=== PATIENT | female | born 1930 | race Caucasian/White ===

== ENCOUNTER 2018-02-20 18:45 | Emergency (ER) | payer MEDICARE ==
[~2018-02-20] VITALS: Ht 165.1 cm; Wt 50.0 kg
[~2018-02-20 18:45] MED LIST: AMLO10TA13 PO; ASPI-611 PO; CHLO25TA2 PO; CLOP75TA35 PO; LEVO75TA57 PO; POTA10CA44 PO
[2018-02-20] MEDS ORDERED: aspirin 81mg tab.chew PO ONE (20:15)
[2018-02-20] MEDS ORDERED: nitroGLYCERIN 0.4mg SUBLingual tab SL PRN (20:15)
[2018-02-20] MEDS ORDERED: ondansetron/PF 4mg/2ml inj IV ONE (20:30)
[2018-02-20] MEDS ORDERED: morphine 4 MG/ML inj SYRINge IV ONE (20:30)
[2018-02-20 20:55] LABS: BASOPHILS % (AUTO) 0.3 % (0-1); EOSINOPHILS # (AUTO) 0.4 X10'3 (0-0.9); HEMATOCRIT 37.9 % (35.0-45.0); HEMOGLOBIN 13.1 g/dl (12.0-16.0); LYMPHOCYTES # (AUTO) 1.8 X10'3 (1.1-4.8); LYMPHOCYTES % (AUTO) 24.6 % (21-51); MEAN CORPUSCULAR HEMOGLOBIN 33.1 PG (27.0-31.0); MEAN CORPUSCULAR HGB CONC 34.5 % (33.0-36.5); MEAN CORPUSCULAR VOLUME 95.9 FL (78-98); MEAN PLATELET VOLUME 9.5 FL (7.4-10.4); MONOCYTES # (AUTO) 0.6 X10'3 (0-0.9); MONOCYTES % (AUTO) 7.6 % (2-12); NEUTROPHILS # (AUTO) 4.7 X10'3 (1.8-7.7); NEUTROPHILS % (AUTO) 62.5 % (42-75); PLATELET COUNT 208 X10'3 (140-440); RED BLOOD COUNT 3.96 X10'6 (4.20-5.60); RED CELL DISTRIBUTION WIDTH 12.9 % (11.5-14.5); WHITE BLOOD COUNT 7.4 X10'3 (4.5-11.0)
[2018-02-20 21:10] LABS: INR 0.9 INR; PARTIAL THROMBOPLASTIN TIME 26 SECONDS (22-32); PROTHROMBIN TIME 9.5 SECONDS (9.0-12.0)
[2018-02-20 21:17] LABS: ALANINE AMINOTRANSFERASE 21 U/L (12-78); ALBUMIN/GLOBULIN RATIO 1.1 (1.1-1.5); ALKALINE PHOSPHATASE 70 IU/L (46-116); ANION GAP 10 (8-16); ASPARTATE AMINO TRANSFERASE 19 U/L (10-37); BILIRUBIN,TOTAL 0.3 MG/DL (0.1-1.0); BLOOD UREA NITROGEN 24 MG/DL (7-18); BUN/CREATININE RATIO 20.5 (6.6-38.0); CALCIUM 9.1 MG/DL (8.5-10.1); CHLORIDE 97 MMOL/L (99-107); CREATININE 1.17 MG/DL (0.40-0.90); GLUCOSE 113 MG/DL (70-104); SODIUM 135 MMOL/L (135-145); TOTAL CARBON DIOXIDE 28.5 MMOL/L (24-32); TOTAL PROTEIN 7.8 G/DL (6.4-8.2); eGFR 44 ML/MIN
[2018-02-20 21:31] LABS: MAGNESIUM 2.1 MG/DL (1.5-2.4)
[2018-02-20] MEDS ORDERED: potassium Cl 20 mEq SR tablet PO STA (21:35)
[2018-02-20] MEDS ORDERED: mag hydrox/Alum hydrox/simeth 30ml oral suspension PO ONE (21:50)
[2018-02-20] MEDS ORDERED: LIDOcaine Viscous 15ml cup MM ONE (21:50)
[2018-02-20] MEDS ORDERED: famotidine/PF 10 mg/ml inj IV ONE (21:50)
[2018-02-21] MEDS ORDERED: FAMO-128 PO (00:06)
[2018-02-21] MEDS ORDERED: MAG355OR18 PO (00:06)
[2018-02-21 01:09] VITALS: BP 165/71
== END 2018-02-21 01:23 | disposition home or self-care (01) ==
LOC: ER 18:46
DX: K29.70 Gastritis, unspecified, without bleeding (principal); S00.83XA Contusion of other part of head, initial encounter; K20.9 Esophagitis, unspecified; I25.10 Atherosclerotic heart disease of native coronary artery without angina pectoris; E78.00 Pure hypercholesterolemia, unspecified; I10 Essential (primary) hypertension; M19.90 Unspecified osteoarthritis, unspecified site; Z88.8 Allergy status to other drugs, medicaments and biological substances; Z79.82 Long term (current) use of aspirin; X58.XXXA Exposure to other specified factors, initial encounter; Y93.89 Activity, other specified; Y92.89 Other specified places as the place of occurrence of the external cause; Y99.8 Other external cause status
CPT/HCPCS: 36415; 70450; 71045; 74176; 76700; 80053; 83735; 83880; 84484; 85025; 85610; 85730; 96374; 96375; 99285; J2270; J2405; J3490; 74150

== ENCOUNTER 2018-02-24 18:34 | Emergency (ER) | payer MEDICARE ==
[~2018-02-24] VITALS: Ht 165.1 cm; Wt 52.2 kg
[~2018-02-24 18:34] MED LIST changes: +FAMO-128 PO; +MAG355OR18 PO
[2018-02-24 19:20] LABS: INR 0.9 INR; PROTHROMBIN TIME 9.7 SECONDS (9.0-12.0)
[2018-02-24 19:25] LABS: BASOPHILS % (AUTO) 0.3 % (0-1); EOSINOPHILS # (AUTO) 0.3 X10'3 (0-0.9); EOSINOPHILS % (AUTO) 3.1 % (0-6); HEMATOCRIT 37.8 % (35.0-45.0); HEMOGLOBIN 13.2 g/dl (12.0-16.0); LYMPHOCYTES # (AUTO) 1.8 X10'3 (1.1-4.8); LYMPHOCYTES % (AUTO) 22.4 % (21-51); MEAN CORPUSCULAR HEMOGLOBIN 33.1 PG (27.0-31.0); MEAN CORPUSCULAR HGB CONC 34.9 % (33.0-36.5); MEAN CORPUSCULAR VOLUME 94.7 FL (78-98); MONOCYTES # (AUTO) 0.8 X10'3 (0-0.9); MONOCYTES % (AUTO) 9.7 % (2-12); NEUTROPHILS # (AUTO) 5.3 X10'3 (1.8-7.7); NEUTROPHILS % (AUTO) 64.5 % (42-75); PLATELET COUNT 225 X10'3 (140-440); RED BLOOD COUNT 3.99 X10'6 (4.20-5.60); RED CELL DISTRIBUTION WIDTH 13.1 % (11.5-14.5); WHITE BLOOD COUNT 8.2 X10'3 (4.5-11.0)
[2018-02-24 19:26] LABS: ALANINE AMINOTRANSFERASE 19 U/L (12-78); ALBUMIN 3.9 G/DL (3.4-5.0); ALBUMIN/GLOBULIN RATIO 1.1 (1.1-1.5); ALKALINE PHOSPHATASE 72 IU/L (46-116); ANION GAP 9 (8-16); ASPARTATE AMINO TRANSFERASE 16 U/L (10-37); BILIRUBIN,TOTAL 0.3 MG/DL (0.1-1.0); BLOOD UREA NITROGEN 28 MG/DL (7-18); BUN/CREATININE RATIO 19.6 (6.6-38.0); CALCIUM 8.8 MG/DL (8.5-10.1); CHLORIDE 97 MMOL/L (99-107); CREATININE 1.43 MG/DL (0.40-0.90); GLUCOSE 111 MG/DL (70-104); SODIUM 135 MMOL/L (135-145); TOTAL CARBON DIOXIDE 29.4 MMOL/L (24-32); TOTAL PROTEIN 7.6 G/DL (6.4-8.2); eGFR 35 ML/MIN
[2018-02-24] MEDS ORDERED: potassium Cl 20 mEq SR tablet PO STA (20:07)
[2018-02-24 20:08] LABS: CLARITY,URINE CLEAR (Clear); COLOR,URINE YELLOW (Yellow); GLUCOSE, URINE NEGATIVE (Neg); KETONES,URINE NEGATIVE (Neg); LEUKOCYTE ESTERASE ,URINE SMALL (Neg); NITRITES, URINE NEGATIVE (Neg); OCCULT BLOOD,URINE NEGATIVE (Neg); PROTEIN,URINE NEGATIVE (Neg); UROBILINOGEN,URINE 0.2 E.U/dL (0.2-1.0)
[2018-02-24] MEDS ORDERED: pantoprazole 40 MG vial IV ONE (20:10)
[2018-02-24] MEDS ORDERED: ondansetron/PF 4mg/2ml inj IV ONE (20:10)
[2018-02-24 20:17] LABS: UA COLLECTION TYPE CLN CATCH MIDSTREAM
[2018-02-24 20:19] LABS: BACTERIA,URINE FEW /HPF (Neg); MUCUS STRANDS FEW /LPF (Neg); RBC,URINE 0-2 /HPF (0-2); SQUAMOUS EPITHELIAL CELL,UR FEW /LPF (FEW)
[2018-02-24] MEDS ORDERED: FAMO20TA44 PO (21:17)
[2018-02-24] MEDS ORDERED: CEPH-572 PO (21:17)
[2018-02-24] MEDS ORDERED: SUCR1ORA2 PO (21:17)
[2018-02-24] MEDS ORDERED: ONDA4TAB9 SL (21:17)
[2018-02-24] MEDS ORDERED: OMEP20CA10 PO (21:17)
[2018-02-24 21:31] VITALS: BP 151/82
== END 2018-02-24 21:33 | disposition home or self-care (01) ==
LOC: ER 18:34
DX: K52.9 Noninfective gastroenteritis and colitis, unspecified (principal); N39.0 Urinary tract infection, site not specified; I12.9 Hypertensive chronic kidney disease with stage 1 through stage 4 chronic kidney disease, or unspecified chronic kidney disease; N18.9 Chronic kidney disease, unspecified; E87.6 Hypokalemia; I25.10 Atherosclerotic heart disease of native coronary artery without angina pectoris; E78.00 Pure hypercholesterolemia, unspecified; M19.90 Unspecified osteoarthritis, unspecified site; E03.9 Hypothyroidism, unspecified; G89.29 Other chronic pain; Z90.710 Acquired absence of both cervix and uterus; Z98.61 Coronary angioplasty status; Z60.2 Problems related to living alone; Z88.8 Allergy status to other drugs, medicaments and biological substances; Z91.018 Allergy to other foods; Z79.82 Long term (current) use of aspirin; Z79.899 Other long term (current) drug therapy
CPT/HCPCS: 36415; 80053; 81001; 84484; 85025; 85610; 87088; 96374; 96375; 99284; C9113; J2405; J7030

== ENCOUNTER 2018-03-10 07:14 | Emergency (ER) | payer MEDICARE ==
[~2018-03-10] VITALS: Ht 165.1 cm; Wt 50.0 kg
[~2018-03-10 07:14] MED LIST changes: +FAMO20TA44 PO; +OMEP20CA10 PO; +ONDA4TAB9 SL; +SUCR1ORA2 PO
[2018-03-10 08:20] LABS: BASOPHILS % (AUTO) 0.1 % (0-1); EOSINOPHILS # (AUTO) 0.1 X10'3 (0-0.9); EOSINOPHILS % (AUTO) 0.8 % (0-6); HEMATOCRIT 38.1 % (35.0-45.0); HEMOGLOBIN 13.1 g/dl (12.0-16.0); LYMPHOCYTES # (AUTO) 1.2 X10'3 (1.1-4.8); LYMPHOCYTES % (AUTO) 8.2 % (21-51); MEAN CORPUSCULAR HEMOGLOBIN 32.7 PG (27.0-31.0); MEAN CORPUSCULAR HGB CONC 34.2 % (33.0-36.5); MEAN CORPUSCULAR VOLUME 95.4 FL (78-98); MEAN PLATELET VOLUME 10.6 FL (7.4-10.4); MONOCYTES # (AUTO) 0.9 X10'3 (0-0.9); MONOCYTES % (AUTO) 6.2 % (2-12); NEUTROPHILS # (AUTO) 12.6 X10'3 (1.8-7.7); NEUTROPHILS % (AUTO) 84.7 % (42-75); PLATELET COUNT 200 X10'3 (140-440); RED CELL DISTRIBUTION WIDTH 13.1 % (11.5-14.5); WHITE BLOOD COUNT 14.8 X10'3 (4.5-11.0)
[2018-03-10 08:29] LABS: ALANINE AMINOTRANSFERASE 17 U/L (12-78); ALBUMIN 3.6 G/DL (3.4-5.0); ALBUMIN/GLOBULIN RATIO 0.9 (1.1-1.5); ALKALINE PHOSPHATASE 69 IU/L (46-116); ANION GAP 11 (8-16); ASPARTATE AMINO TRANSFERASE 16 U/L (10-37); BILIRUBIN,TOTAL 0.7 MG/DL (0.1-1.0); BLOOD UREA NITROGEN 17 MG/DL (7-18); CALCIUM 8.9 MG/DL (8.5-10.1); CHLORIDE 96 MMOL/L (99-107); CREATININE 1.21 MG/DL (0.40-0.90); GLUCOSE 182 MG/DL (70-104); LIPASE 107 U/L (73-393); SODIUM 136 MMOL/L (135-145); TOTAL CARBON DIOXIDE 29.3 MMOL/L (24-32); TOTAL PROTEIN 7.8 G/DL (6.4-8.2); eGFR 42 ML/MIN
[2018-03-10 08:30] LABS: POTASSIUM 2.6 MMOL/L (3.5-5.1)
[2018-03-10] MEDS ORDERED: potassium Cl 20 mEq SR tablet PO STA (08:31)
[2018-03-10 09:37] LABS: CLARITY,URINE CLEAR (Clear); COLOR,URINE YELLOW (Yellow); GLUCOSE, URINE NEGATIVE (Neg); KETONES,URINE NEGATIVE (Neg); LEUKOCYTE ESTERASE ,URINE NEGATIVE (Neg); NITRITES, URINE NEGATIVE (Neg); OCCULT BLOOD,URINE TRACE-INTACT (Neg); PH,URINE 7.5 (4.8-8.0); PROTEIN,URINE NEGATIVE (Neg); UROBILINOGEN,URINE 0.2 E.U/dL (0.2-1.0)
[2018-03-10 09:44] LABS: UA COLLECTION TYPE CLN CATCH MIDSTREAM
[2018-03-10 09:52] LABS: BACTERIA,URINE FEW /HPF (Neg); SQUAMOUS EPITHELIAL CELL,UR FEW /LPF (FEW); WBC,URINE 0-4 /HPF (0-4)
[2018-03-10] MEDS ORDERED: CIPR-230 PO (09:54)
[2018-03-10] MEDS ORDERED: METR500T4 PO (09:54)
[2018-03-10] MEDS ORDERED: POTA20TA19 PO (09:56)
[2018-03-10 10:17] VITALS: BP 136/66
== END 2018-03-10 10:20 | disposition home or self-care (01) ==
LOC: ER 07:14
DX: K57.92 Diverticulitis of intestine, part unspecified, without perforation or abscess without bleeding (principal); E87.6 Hypokalemia; I25.10 Atherosclerotic heart disease of native coronary artery without angina pectoris; E78.00 Pure hypercholesterolemia, unspecified; I10 Essential (primary) hypertension; G89.29 Other chronic pain; Z90.710 Acquired absence of both cervix and uterus; Z60.2 Problems related to living alone; Z98.890 Other specified postprocedural states; Z88.8 Allergy status to other drugs, medicaments and biological substances; Z79.82 Long term (current) use of aspirin; Z79.899 Other long term (current) drug therapy; Z79.2 Long term (current) use of antibiotics
CPT/HCPCS: 36415; 80053; 81001; 83690; 85025; 99284

== ENCOUNTER 2018-03-27 10:12 | Emergency (ER) | payer MEDICARE ==
[~2018-03-27] VITALS: Ht 165.1 cm; Wt 50.3 kg
[~2018-03-27 10:12] MED LIST changes: +CIPR-230 PO; -MAG355OR18 PO; +METR500T4 PO; +POTA20TA19 PO
[2018-03-27 10:48] LABS: BASOPHILS % (AUTO) 0.4 % (0-1); EOSINOPHILS # (AUTO) 0.1 X10'3 (0-0.9); EOSINOPHILS % (AUTO) 1.5 % (0-6); HEMATOCRIT 40.5 % (35.0-45.0); HEMOGLOBIN 13.9 g/dl (12.0-16.0); LYMPHOCYTES # (AUTO) 1.6 X10'3 (1.1-4.8); LYMPHOCYTES % (AUTO) 18.5 % (21-51); MEAN CORPUSCULAR HEMOGLOBIN 32.6 PG (27.0-31.0); MEAN CORPUSCULAR HGB CONC 34.4 % (33.0-36.5); MEAN CORPUSCULAR VOLUME 94.9 FL (78-98); MEAN PLATELET VOLUME 9.9 FL (7.4-10.4); MONOCYTES # (AUTO) 0.6 X10'3 (0-0.9); MONOCYTES % (AUTO) 6.6 % (2-12); NEUTROPHILS # (AUTO) 6.4 X10'3 (1.8-7.7); PLATELET COUNT 268 X10'3 (140-440); RED BLOOD COUNT 4.27 X10'6 (4.20-5.60); RED CELL DISTRIBUTION WIDTH 13.2 % (11.5-14.5); WHITE BLOOD COUNT 8.7 X10'3 (4.5-11.0)
[2018-03-27 10:53] LABS: COLOR,URINE YELLOW (Yellow); GLUCOSE, URINE NEGATIVE (Neg); KETONES,URINE NEGATIVE (Neg); LEUKOCYTE ESTERASE ,URINE SMALL (Neg); NITRITES, URINE NEGATIVE (Neg); OCCULT BLOOD,URINE TRACE-INTACT (Neg); PROTEIN,URINE NEGATIVE (Neg); UROBILINOGEN,URINE 0.2 E.U/dL (0.2-1.0)
[2018-03-27 10:54] LABS: CLARITY,URINE Slightly Cloudy (Clear); UA COLLECTION TYPE CLN CATCH MIDSTREAM
[2018-03-27 10:56] LABS: INR 0.9 INR; PROTHROMBIN TIME 9.6 SECONDS (9.0-12.0)
[2018-03-27 11:00] LABS: BACTERIA,URINE 1+ /HPF (Neg); SQUAMOUS EPITHELIAL CELL,UR FEW /LPF (FEW); WBC,URINE 50-100 /HPF (0-4)
[2018-03-27 11:02] LABS: ALANINE AMINOTRANSFERASE 24 U/L (12-78); ALBUMIN 3.8 G/DL (3.4-5.0); ALBUMIN/GLOBULIN RATIO 0.8 (1.1-1.5); ALKALINE PHOSPHATASE 66 IU/L (46-116); ANION GAP 11 (8-16); ASPARTATE AMINO TRANSFERASE 18 U/L (10-37); BILIRUBIN,TOTAL 0.3 MG/DL (0.1-1.0); BLOOD UREA NITROGEN 26 MG/DL (7-18); CHLORIDE 97 MMOL/L (99-107); CREATININE 1.04 MG/DL (0.40-0.90); GLUCOSE 123 MG/DL (70-104); POTASSIUM 3.5 MMOL/L (3.5-5.1); SODIUM 136 MMOL/L (135-145); TOTAL CARBON DIOXIDE 27.7 MMOL/L (24-32); TOTAL PROTEIN 8.4 G/DL (6.4-8.2); eGFR 50 ML/MIN
[2018-03-27] MEDS ORDERED: normal saline 1000ML IV soln IVB ONE (11:35)
[2018-03-27] MEDS ORDERED: ondansetron/PF 4mg/2ml inj IV ONE (11:35)
[2018-03-27] MEDS ORDERED: LACT1CAP65 PO (12:47)
[2018-03-27] MEDS ORDERED: AMOX-580 PO (14:09)
[2018-03-27 14:42] VITALS: BP 142/77
== END 2018-03-27 14:46 | disposition home or self-care (01) ==
LOC: ER 10:13
DX: K57.32 Diverticulitis of large intestine without perforation or abscess without bleeding (principal); N39.0 Urinary tract infection, site not specified; R10.31 Right lower quadrant pain; R19.7 Diarrhea, unspecified; I25.10 Atherosclerotic heart disease of native coronary artery without angina pectoris; I10 Essential (primary) hypertension; E78.00 Pure hypercholesterolemia, unspecified; M19.90 Unspecified osteoarthritis, unspecified site; G89.29 Other chronic pain; Z98.61 Coronary angioplasty status; Z90.710 Acquired absence of both cervix and uterus; Z88.8 Allergy status to other drugs, medicaments and biological substances; Z91.018 Allergy to other foods; Z79.82 Long term (current) use of aspirin; Z79.899 Other long term (current) drug therapy
CPT/HCPCS: 36415; 74176; 80053; 81001; 83605; 85025; 85610; 87077; 87088; 87186; 96361; 96374; 99285; J2405; J7030

== ENCOUNTER 2019-04-21 09:32 | Emergency (ER) | payer MEDICARE ==
[~2019-04-21] VITALS: Ht 165.1 cm; Wt 50.0 kg
[~2019-04-21 09:32] MED LIST changes: -CIPR-230 PO; -FAMO-128 PO; -FAMO20TA44 PO; +LACT1CAP65 PO; -METR500T4 PO; -OMEP20CA10 PO; -ONDA4TAB9 SL; -POTA20TA19 PO; -SUCR1ORA2 PO
[2019-04-21 09:58] LABS: BASOPHILS # (AUTO) 0.1 X10'3 (0-0.2); BASOPHILS % (AUTO) 0.5 % (0-1); EOSINOPHILS # (AUTO) 0.1 X10'3 (0-0.9); EOSINOPHILS % (AUTO) 0.6 % (0-6); HEMATOCRIT 41.6 % (35.0-45.0); HEMOGLOBIN 14.2 g/dl (12.0-16.0); LYMPHOCYTES # (AUTO) 1.6 X10'3 (1.1-4.8); LYMPHOCYTES % (AUTO) 15.6 % (21-51); MEAN CORPUSCULAR HEMOGLOBIN 33.1 PG (27.0-31.0); MEAN CORPUSCULAR HGB CONC 34.2 g/dL (33.0-36.5); MEAN CORPUSCULAR VOLUME 96.7 FL (78-98); MEAN PLATELET VOLUME 9.9 FL (7.4-10.4); MONOCYTES # (AUTO) 0.8 X10'3 (0-0.9); MONOCYTES % (AUTO) 7.5 % (2-12); NEUTROPHILS % (AUTO) 75.8 % (42-75); PLATELET COUNT 224 X10'3 (140-440); RED CELL DISTRIBUTION WIDTH 12.9 % (11.5-14.5); WHITE BLOOD COUNT 10.5 X10'3 (4.5-11.0)
[2019-04-21 10:12] LABS: ALANINE AMINOTRANSFERASE 28 U/L (12-78); ALBUMIN 3.6 G/DL (3.4-5.0); ALBUMIN/GLOBULIN RATIO 0.8 (1.1-1.5); ALKALINE PHOSPHATASE 82 IU/L (46-116); ANION GAP 10 (8-16); ASPARTATE AMINO TRANSFERASE 18 U/L (10-37); BILIRUBIN,TOTAL 0.5 MG/DL (0.1-1.0); BLOOD UREA NITROGEN 24 MG/DL (7-18); CALCIUM 9.2 MG/DL (8.5-10.1); CHLORIDE 99 MMOL/L (99-107); GLUCOSE 118 MG/DL (70-104); POTASSIUM 3.3 MMOL/L (3.5-5.1); SODIUM 136 MMOL/L (135-145); TOTAL CARBON DIOXIDE 27.5 MMOL/L (24-32); TOTAL PROTEIN 8.3 G/DL (6.4-8.2); eGFR 42 ML/MIN
[2019-04-21 10:16] LABS: CLARITY,URINE CLEAR (Clear); COLOR,URINE YELLOW (Yellow); GLUCOSE, URINE NEGATIVE (Neg); KETONES,URINE NEGATIVE (Neg); LEUKOCYTE ESTERASE ,URINE NEGATIVE (Neg); NITRITES, URINE NEGATIVE (Neg); OCCULT BLOOD,URINE NEGATIVE (Neg); PROTEIN,URINE NEGATIVE (Neg); UROBILINOGEN,URINE 0.2 E.U/dL (0.2-1.0)
[2019-04-21 10:17] LABS: UA COLLECTION TYPE CLN CATCH MIDSTREAM
[2019-04-21] MEDS ORDERED: DOXY100C43 PO (12:01)
[2019-04-21 12:13] VITALS: BP 137/69
[2019-04-22] MEDS ORDERED: POTA20TA19 PO (15:29)
== END 2019-04-21 12:10 | disposition home or self-care (01) ==
LOC: ER 09:32
DX: R10.30 Lower abdominal pain, unspecified (principal); R05 Cough; R91.8 Other nonspecific abnormal finding of lung field; I25.10 Atherosclerotic heart disease of native coronary artery without angina pectoris; E78.00 Pure hypercholesterolemia, unspecified; I10 Essential (primary) hypertension; E07.9 Disorder of thyroid, unspecified; M19.90 Unspecified osteoarthritis, unspecified site; I25.2 Old myocardial infarction; G89.29 Other chronic pain; Z98.61 Coronary angioplasty status; Z90.710 Acquired absence of both cervix and uterus; Z88.8 Allergy status to other drugs, medicaments and biological substances; Z91.018 Allergy to other foods; Z79.82 Long term (current) use of aspirin; Z79.899 Other long term (current) drug therapy
CPT/HCPCS: 36415; 71046; 74176; 80053; 81003; 85025; 85610; 99284

== ENCOUNTER 2019-04-22 13:08 | Observation (INO) | payer MEDICARE, BC ==
[~2019-04-22] VITALS: Ht 165.1 cm; Wt 74.0 kg
[~2019-04-22 13:08] MED LIST changes: +DOXY100C43 PO
--- NOTE | 2019-04-22 13:30 | NUR ---
ASSISTING RN WITH PT CARE, PT UP TO BEDSIDE COMMODE WITHOUT ASSIST, STEADY ON FEET, NO DIZZINESS, NO SOB, NO CHEST PAIN, RESP EVEN AND UNLABORED, URINE SAMPLE SENT TO LAB
[2019-04-22 14:06] LABS: BASOPHILS # (AUTO) 0.1 X10'3 (0-0.2); BASOPHILS % (AUTO) 0.6 % (0-1); EOSINOPHILS # (AUTO) 0.1 X10'3 (0-0.9); EOSINOPHILS % (AUTO) 0.7 % (0-6); HEMATOCRIT 39.9 % (35.0-45.0); LYMPHOCYTES # (AUTO) 1.9 X10'3 (1.1-4.8); LYMPHOCYTES % (AUTO) 19.8 % (21-51); MEAN CORPUSCULAR HEMOGLOBIN 33.8 PG (27.0-31.0); MEAN CORPUSCULAR HGB CONC 35.1 g/dL (33.0-36.5); MEAN CORPUSCULAR VOLUME 96.2 FL (78-98); MEAN PLATELET VOLUME 10.3 FL (7.4-10.4); MONOCYTES # (AUTO) 0.8 X10'3 (0-0.9); MONOCYTES % (AUTO) 7.8 % (2-12); NEUTROPHILS # (AUTO) 6.8 X10'3 (1.8-7.7); NEUTROPHILS % (AUTO) 71.1 % (42-75); PLATELET COUNT 209 X10'3 (140-440); RED BLOOD COUNT 4.14 X10'6 (4.20-5.60); RED CELL DISTRIBUTION WIDTH 12.8 % (11.5-14.5); WHITE BLOOD COUNT 9.6 X10'3 (4.5-11.0)
[2019-04-22 14:28] LABS: ALANINE AMINOTRANSFERASE 22 U/L (12-78); ALBUMIN 3.5 G/DL (3.4-5.0); ALBUMIN/GLOBULIN RATIO 0.7 (1.1-1.5); ALKALINE PHOSPHATASE 82 IU/L (46-116); ANION GAP 11 (8-16); ASPARTATE AMINO TRANSFERASE 15 U/L (10-37); BILIRUBIN,TOTAL 0.6 MG/DL (0.1-1.0); BLOOD UREA NITROGEN 19 MG/DL (7-18); BUN/CREATININE RATIO 20.2 (6.6-38.0); CALCIUM 8.9 MG/DL (8.5-10.1); CHLORIDE 98 MMOL/L (99-107); CREATININE 0.94 MG/DL (0.40-0.90); GLUCOSE 141 MG/DL (70-104); MAGNESIUM 1.7 MG/DL (1.5-2.4); SODIUM 134 MMOL/L (135-145); TOTAL CARBON DIOXIDE 25.3 MMOL/L (24-32); TOTAL PROTEIN 8.7 G/DL (6.4-8.2); eGFR 56 ML/MIN
[2019-04-22 14:32] LABS: POTASSIUM 2.6 MMOL/L (3.5-5.1)
[2019-04-22] MEDS ORDERED: potassium Cl 20 mEq SR tablet PO ONE (14:45)
[2019-04-22] MEDS: potassium Cl 10 mEq/100mL bag IV SCH ×3 (15:11→17:20)
--- NOTE | 2019-04-22 15:16 | NUR ---
PT IS RESTING QUIETLY ON GURNEY, MEGAN PO MEDS WELL, NO N/V, IV TO LEFT AC IS PATENT AND CLEAR, WAITING TO BE EVALUATED BY HOSPITALIST
[2019-04-22] MEDS ORDERED: POTA20TA19 PO (15:29)
[2019-04-22] MEDS ORDERED: potassium Cl 20 mEq SR tablet PO PRN ×2 (15:35)
[2019-04-22] MEDS ORDERED: HYDROcodone/acetaminophen 5mg/325mg tablet PO PRN (15:35)
[2019-04-22] MEDS ORDERED: ondansetron/PF 4mg/2ml inj IV PRN (15:35)
[2019-04-22] MEDS ORDERED: morphine 2 MG/ML inj. syringe IV PRN ×2 (15:35)
[2019-04-22] MEDS ORDERED: magnesium hydroxide 30ml (MOM) UD suspension PO PRN (15:35)
[2019-04-22] MEDS ORDERED: mag hydrox/Alum hydrox/simeth 30ml oral suspension PO PRN (15:35)
[2019-04-22] MEDS ORDERED: potassium CL 10mEq/100ml bag 100 ML IV PRN (15:35)
[2019-04-22] MEDS ORDERED: acetaminophen 325mg tablet PO PRN ×2 (15:35)
[2019-04-22] MEDS: normal saline 1000ml 1,000 ML IV SCH ×2 (15:39→21:35)
[2019-04-22 15:44] LABS: CLARITY,URINE CLEAR (Clear); COLOR,URINE STRAW (Yellow); GLUCOSE, URINE NEGATIVE (Neg); KETONES,URINE NEGATIVE (Neg); LEUKOCYTE ESTERASE ,URINE NEGATIVE (Neg); NITRITES, URINE NEGATIVE (Neg); OCCULT BLOOD,URINE TRACE-INTACT (Neg); PROTEIN,URINE TRACE mg/dl (Neg); UA COLLECTION TYPE CLN CATCH MIDSTREAM; UROBILINOGEN,URINE 0.2 E.U/dL (0.2-1.0)
[2019-04-22 15:49] LABS: SQUAMOUS EPITHELIAL CELL,UR FEW /LPF (FEW)
[2019-04-22 15:50] LABS: BACTERIA,URINE FEW /HPF (Neg); RBC,URINE 0-2 /HPF (0-2); WBC,URINE 0-4 /HPF (0-4)
--- NOTE | 2019-04-22 16:03 | NUR ---
field property loss specialist Carl Adkins [phone]
--- NOTE | 2019-04-22 17:06 | NUR ---
report called to Tracy GRADY
[2019-04-22 17:20] LABS: MAGNESIUM 1.7 MG/DL (1.5-2.4); POTASSIUM 5.7 MMOL/L (3.5-5.1)
--- NOTE | 2019-04-22 17:20 | NUR ---
Patient in room ORTHO 4017. I have received report from LANNY GRADY and had the opportunity to ask questions and assume patient care.
--- NOTE | 2019-04-22 17:33 | NUR ---
PAGER ID: [phone] MESSAGE: RODO [id number] RE: MARLEN [phone] PLEASE ADDRESS THE MED REC WHEN YOU HAVE TIME, THANKS
[2019-04-22 18:00] VITALS: BP 157/52
--- NOTE | 2019-04-22 18:18 | NUR ---
Problems reprioritized. Patient report given, questions answered & plan of care reviewed with KAYLYNN GRADY.
--- NOTE | 2019-04-22 18:31 | NUR ---
Patient in room ORTHO 4017. I have received report from YSABEL KOEHLER and had the opportunity to ask questions and assume patient care.
[2019-04-22 20:00] VITALS: BP_SYST 119; BP_SYST 146; BP_SYST 154; BP_DIAS 37; BP_DIAS 46; BP_DIAS 49
[2019-04-22 22:00] VITALS: BP 154/46
[2019-04-23 06:00] VITALS: BP 135/82
[2019-04-23 06:03] LABS: ALBUMIN 3.2 G/DL (3.4-5.0); ANION GAP 8 (8-16); BLOOD UREA NITROGEN 14 MG/DL (7-18); BUN/CREATININE RATIO 16.9 (6.6-38.0); CALCIUM 8.4 MG/DL (8.5-10.1); CHLORIDE 103 MMOL/L (99-107); CREATININE 0.83 MG/DL (0.40-0.90); GLUCOSE 99 MG/DL (70-104); MAGNESIUM 1.8 MG/DL (1.5-2.4); POTASSIUM 3.6 MMOL/L (3.5-5.1); SODIUM 138 MMOL/L (135-145); TOTAL CARBON DIOXIDE 27.4 MMOL/L (24-32); eGFR 65 ML/MIN
--- NOTE | 2019-04-23 06:38 | NUR ---
Problems reprioritized. Patient report given, questions answered & plan of care reviewed with YSABEL GOLD.
--- NOTE | 2019-04-23 06:48 | NUR ---
Patient in room ORTHO 4017. I have received report from Mallorie GRADY and had the opportunity to ask questions and assume patient care.
[2019-04-23] MEDS: normal saline 1000ml 1,000 ML IV SCH (07:38)
[2019-04-23 08:00] VITALS: BP_SYST 145; BP_SYST 150; BP_SYST 151; BP_DIAS 39; BP_DIAS 47; BP_DIAS 50
[2019-04-23 10:00] VITALS: BP 145/47
--- NOTE | 2019-04-23 11:04 | NUR ---
patient discharged to home accompanied by family in private vehicle, patient educated on hypokalemia and ways to prevent it from happening again, patient stable upon discharge and all belongings sent with patient
[2019-04-23] MEDS ORDERED: potassium Cl 20 mEq SR tablet PO SCH (13:00)
[2019-04-23] MEDS ORDERED: lactobacillus rhamnosus 10,000 MMU CELLS/CAPSULE PO SCH (20:00)
[2019-04-23] MEDS ORDERED: amLODIPine 5mg tablet PO SCH (21:00)
[2019-04-24] MEDS ORDERED: levoTHYROXINE 75mcg tablet PO SCH (08:00)
[2019-04-24] MEDS ORDERED: aspirin 81mg tablet.DR PO SCH (08:00)
[2019-04-24] MEDS ORDERED: chlorthalidone 25mg tablet PO SCH (08:00)
== END 2019-04-23 11:00 | disposition home or self-care (01) ==
LOC: ER 13:09 → ORTHO 4S 17:16 → CMPBEDREQ 19:47
PROVIDERS: ADMIT Internal Medicine; ATTEND Internal Medicine
DX: E87.6 Hypokalemia (principal); R53.1 Weakness; E03.9 Hypothyroidism, unspecified; I10 Essential (primary) hypertension; I25.10 Atherosclerotic heart disease of native coronary artery without angina pectoris; E78.00 Pure hypercholesterolemia, unspecified; G89.29 Other chronic pain; M19.90 Unspecified osteoarthritis, unspecified site; Z79.82 Long term (current) use of aspirin; Z90.710 Acquired absence of both cervix and uterus; Z88.1 Allergy status to other antibiotic agents
CPT/HCPCS: 36415; 70450; 71045; 80048; 80053; 81001; 83735; 83880; 84132; 84484; 85025; 87081; 93005; 96365; 96366; 99284; G0378; J3480; J7030

== ENCOUNTER 2019-05-09 14:29 | Observation (INO) | payer MEDICARE, BC ==
[~2019-05-09] VITALS: Ht 165.1 cm; Wt 57.0 kg
[~2019-05-09 14:29] MED LIST changes: -CLOP75TA35 PO; -DOXY100C43 PO; -POTA10CA44 PO; +POTA20TA19 PO
[2019-05-09 15:18] LABS: BASOPHILS # (AUTO) 0.1 X10'3 (0-0.2); BASOPHILS % (AUTO) 0.9 % (0-1); EOSINOPHILS # (AUTO) 0.1 X10'3 (0-0.9); EOSINOPHILS % (AUTO) 1.1 % (0-6); HEMATOCRIT 40.2 % (35.0-45.0); HEMOGLOBIN 13.7 g/dl (12.0-16.0); LYMPHOCYTES # (AUTO) 1.4 X10'3 (1.1-4.8); LYMPHOCYTES % (AUTO) 17.3 % (21-51); MEAN CORPUSCULAR HGB CONC 34.1 g/dL (33.0-36.5); MEAN CORPUSCULAR VOLUME 96.7 FL (78-98); MEAN PLATELET VOLUME 10.1 FL (7.4-10.4); MONOCYTES # (AUTO) 0.7 X10'3 (0-0.9); MONOCYTES % (AUTO) 8.1 % (2-12); NEUTROPHILS # (AUTO) 5.9 X10'3 (1.8-7.7); NEUTROPHILS % (AUTO) 72.6 % (42-75); PLATELET COUNT 222 X10'3 (140-440); RED BLOOD COUNT 4.16 X10'6 (4.20-5.60); RED CELL DISTRIBUTION WIDTH 13.2 % (11.5-14.5); WHITE BLOOD COUNT 8.1 X10'3 (4.5-11.0)
[2019-05-09 15:25] LABS: PARTIAL THROMBOPLASTIN TIME 30 SECONDS (22-32)
[2019-05-09 15:28] LABS: ALANINE AMINOTRANSFERASE 23 U/L (12-78); ALBUMIN 3.4 G/DL (3.4-5.0); ALBUMIN/GLOBULIN RATIO 0.8 (1.1-1.5); ALKALINE PHOSPHATASE 74 IU/L (46-116); ANION GAP 11 (8-16); ASPARTATE AMINO TRANSFERASE 12 U/L (10-37); BILIRUBIN,TOTAL 0.3 MG/DL (0.1-1.0); BLOOD UREA NITROGEN 28 MG/DL (7-18); BUN/CREATININE RATIO 25.7 (6.6-38.0); CALCIUM 8.8 MG/DL (8.5-10.1); CHLORIDE 103 MMOL/L (99-107); CREATININE 1.09 MG/DL (0.40-0.90); GLUCOSE 119 MG/DL (70-104); POTASSIUM 3.3 MMOL/L (3.5-5.1); SODIUM 140 MMOL/L (135-145); TOTAL CARBON DIOXIDE 26.2 MMOL/L (24-32); TOTAL PROTEIN 7.6 G/DL (6.4-8.2); eGFR 47 ML/MIN
[2019-05-09] MEDS ORDERED: normal saline 1000ML IV soln IV ONE (15:45)
[2019-05-09 16:34] LABS: CLARITY,URINE CLEAR (Clear); COLOR,URINE STRAW (Yellow); GLUCOSE, URINE NEGATIVE (Neg); KETONES,URINE NEGATIVE (Neg); LEUKOCYTE ESTERASE ,URINE NEGATIVE (Neg); NITRITES, URINE NEGATIVE (Neg); OCCULT BLOOD,URINE NEGATIVE (Neg); PROTEIN,URINE NEGATIVE (Neg); UROBILINOGEN,URINE 0.2 E.U/dL (0.2-1.0)
[2019-05-09 16:37] LABS: UA COLLECTION TYPE CLN CATCH MIDSTREAM
[2019-05-09] MEDS ORDERED: diltiazem-D5W 125mg/125ml 125 ML IV ONE (17:03)
[2019-05-09] MEDS ORDERED: diltiazem 5mg/ml 5ml inj. IV ONE (17:05)
[2019-05-09] MEDS ORDERED: diltiazem-NS 100mg/100ml 100 ML IV ONE (17:10)
--- NOTE | 2019-05-09 17:50 | NUR ---
Notified Dr. Steward of unchanged HR; requesting order to increase cardizem gtt; no orders to change gtt at this time. Pt denies cp or sob. Will continue to monitor.
[2019-05-09] MEDS ORDERED: LISI10TA4 PO (17:54)
[2019-05-09 18:17] LABS: D-DIMER 0.32 MG/L FEU (0-0.50)
[2019-05-09] MEDS ORDERED: metoprolol tartrate 1mg/ml inj IV ONE ×2 (18:30→19:20)
--- NOTE | 2019-05-09 18:54 | NUR ---
just given metoprolol 5 mg iv. hr from 133 to 100 now a few minutes after administration. deines any cp. ra sats 96%.
--- NOTE | 2019-05-09 19:04 | NUR ---
orthostatics completed, hr from 97 sitting to 130 standing. RR increased to [address] lu enrique.
--- NOTE | 2019-05-09 19:14 | NUR ---
dr. leigh at bedside. hr has returned to 128-133 bpm. He requests another dose of lopressor 5 mg iv and that Pt be hooked up to EKG and when med given and rate drops to capture rythym
[2019-05-09] MEDS ORDERED: etomidate 2mg/ml inj. IV ONE (19:40)
--- NOTE | 2019-05-09 20:08 | NUR ---
5 MG ETOMIDATE GIVEN BY DR DEAL 2008 1MG ETOMIDATE GIVEN BY DR DEAL
--- NOTE | 2019-05-09 20:20 | NUR ---
[address] DEAL
[2019-05-09] MEDS ORDERED: magnesium hydroxide 30ml (MOM) UD suspension PO PRN (20:25)
[2019-05-09] MEDS ORDERED: potassium CL 10mEq/100ml bag 100 ML IV PRN ×2 (20:25)
[2019-05-09] MEDS ORDERED: ondansetron/PF 4mg/2ml inj IV PRN (20:25)
[2019-05-09] MEDS ORDERED: acetaminophen 325mg tablet PO PRN ×2 (20:25)
[2019-05-09] MEDS ORDERED: potassium Cl 20 mEq SR tablet PO PRN (20:25)
[2019-05-09] MEDS ORDERED: mag hydrox/Alum hydrox/simeth 30ml oral suspension PO PRN (20:25)
[2019-05-09] MEDS: normal saline 1000ml 1,000 ML IV SCH (20:42)
[2019-05-09] MEDS: amLODIPine 5mg tablet PO SCH (21:00)
[2019-05-09 23:00] VITALS: BP 123/47
--- NOTE | 2019-05-09 23:57 | NUR ---
PATIENT HAD 9 BEAT V-TAC. NOTIFIED DR. REEVES.
[2019-05-10] MEDS: potassium Cl 20 mEq SR tablet PO PRN ×2 (00:05→04:03)
[2019-05-10 03:00] VITALS: BP 135/59
[2019-05-10 04:05] LABS: ALBUMIN 2.8 G/DL (3.4-5.0); ANION GAP 9 (8-16); BLOOD UREA NITROGEN 19 MG/DL (7-18); BUN/CREATININE RATIO 22.9 (6.6-38.0); CALCIUM 7.3 MG/DL (8.5-10.1); CHLORIDE 112 MMOL/L (99-107); CREATININE 0.83 MG/DL (0.40-0.90); GLUCOSE 97 MG/DL (70-104); POTASSIUM 3.9 MMOL/L (3.5-5.1); SODIUM 145 MMOL/L (135-145); TOTAL CARBON DIOXIDE 23.8 MMOL/L (24-32); eGFR 65 ML/MIN
[2019-05-10 05:20] LABS: BASOPHILS % (AUTO) 0.2 % (0-1); EOSINOPHILS # (AUTO) 0.1 X10'3 (0-0.9); EOSINOPHILS % (AUTO) 1.6 % (0-6); HEMATOCRIT 35.3 % (35.0-45.0); HEMOGLOBIN 11.8 g/dl (12.0-16.0); LYMPHOCYTES # (AUTO) 2.1 X10'3 (1.1-4.8); LYMPHOCYTES % (AUTO) 26.2 % (21-51); MEAN CORPUSCULAR HEMOGLOBIN 33.2 PG (27.0-31.0); MEAN CORPUSCULAR HGB CONC 33.5 g/dL (33.0-36.5); MEAN CORPUSCULAR VOLUME 99.1 FL (78-98); MEAN PLATELET VOLUME 10.6 FL (7.4-10.4); MONOCYTES # (AUTO) 0.7 X10'3 (0-0.9); MONOCYTES % (AUTO) 8.6 % (2-12); NEUTROPHILS # (AUTO) 5.1 X10'3 (1.8-7.7); NEUTROPHILS % (AUTO) 63.4 % (42-75); PLATELET COUNT 188 X10'3 (140-440); RED BLOOD COUNT 3.56 X10'6 (4.20-5.60); RED CELL DISTRIBUTION WIDTH 13.5 % (11.5-14.5)
[2019-05-10 06:00] VITALS: BP 149/55
--- NOTE | 2019-05-10 06:10 | NUR ---
Patient in room MED 314. I have received report from MONSE, and had the opportunity to ask questions and assume patient care.
[2019-05-10] MEDS: normal saline 1000ml 1,000 ML IV SCH ×3 (06:23→19:53)
[2019-05-10] MEDS: K and/or MAG REPLACEMENT MC SCH (08:00)
[2019-05-10] MEDS: lactobacillus rhamnosus 10,000 MMU CELLS/CAPSULE PO SCH ×2 (08:03→19:46)
[2019-05-10] MEDS: levoTHYROXINE 75mcg tablet PO SCH (08:03)
[2019-05-10] MEDS: aspirin 81mg tablet.DR PO SCH (08:03)
[2019-05-10] MEDS: potassium Cl 20 mEq SR tablet PO SCH (08:05)
[2019-05-10] MEDS: lisinopril 10 MG tablet PO SCH (08:08)
[2019-05-10 11:00] VITALS: BP 143/46
[2019-05-10 15:00] VITALS: BP 128/53
--- NOTE | 2019-05-10 18:14 | NUR ---
Problems reprioritized. Patient report given, questions answered & plan of care reviewed with ANKIT.
--- NOTE | 2019-05-10 18:32 | NUR ---
Patient in room MED 314. I have received report from Galina GRADY and had the opportunity to ask questions and assume patient care.
[2019-05-10 19:00] VITALS: BP 163/57
[2019-05-10] MEDS: amLODIPine 5mg tablet PO SCH (19:46)
[2019-05-10 23:00] VITALS: BP 124/59
[2019-05-11] MEDS ORDERED: diphenhydrAMINE 25mg capsule PO PRN (00:15)
--- NOTE | 2019-05-11 00:15 | NUR ---
Notification: Called Dr. Orozco RE: Pt breaking out in red welts were telemetry pads had been. Hypoallergenic pads now applied. Benadryl 50 mg po Q6 hrs PRN itching ordered. Will continue to monitor.
[2019-05-11] MEDS: apixaban 5mg tablet PO SCH ×2 (00:25→08:02)
[2019-05-11 03:00] VITALS: BP 134/51
[2019-05-11 06:00] VITALS: BP 157/54
--- NOTE | 2019-05-11 06:27 | NUR ---
Problems reprioritized. Patient report given, questions answered & plan of care reviewed with Bharat GRADY.
--- NOTE | 2019-05-11 06:33 | NUR ---
Patient in room MED 314. I have received report from YSABEL Jones and had the opportunity to ask questions and assume patient care.
[2019-05-11 07:10] LABS: BASOPHILS % (AUTO) 0.4 % (0-1); EOSINOPHILS # (AUTO) 0.2 X10'3 (0-0.9); EOSINOPHILS % (AUTO) 3.1 % (0-6); HEMATOCRIT 35.2 % (35.0-45.0); LYMPHOCYTES # (AUTO) 1.9 X10'3 (1.1-4.8); MEAN CORPUSCULAR HEMOGLOBIN 33.4 PG (27.0-31.0); MEAN CORPUSCULAR HGB CONC 34.2 g/dL (33.0-36.5); MEAN CORPUSCULAR VOLUME 97.6 FL (78-98); MEAN PLATELET VOLUME 10.6 FL (7.4-10.4); MONOCYTES # (AUTO) 0.4 X10'3 (0-0.9); MONOCYTES % (AUTO) 7.5 % (2-12); NEUTROPHILS # (AUTO) 3.4 X10'3 (1.8-7.7); PLATELET COUNT 176 X10'3 (140-440); RED CELL DISTRIBUTION WIDTH 13.2 % (11.5-14.5)
[2019-05-11 07:33] LABS: ALBUMIN 3.2 G/DL (3.4-5.0); ANION GAP 8 (8-16); BLOOD UREA NITROGEN 15 MG/DL (7-18); BUN/CREATININE RATIO 19.7 (6.6-38.0); CALCIUM 7.4 MG/DL (8.5-10.1); CHLORIDE 109 MMOL/L (99-107); CREATININE 0.76 MG/DL (0.40-0.90); GLUCOSE 86 MG/DL (70-104); POTASSIUM 3.6 MMOL/L (3.5-5.1); SODIUM 142 MMOL/L (135-145); TOTAL CARBON DIOXIDE 25.2 MMOL/L (24-32); eGFR 72 ML/MIN
[2019-05-11] MEDS ORDERED: carVEDilol 12.5mg tablet PO SCH (08:00)
[2019-05-11] MEDS ORDERED: triamcinolone acetonide 0.5% cream 15gm TP SCH (08:00)
[2019-05-11] MEDS: K and/or MAG REPLACEMENT MC SCH (08:00)
[2019-05-11] MEDS: aspirin 81mg tablet.DR PO SCH (08:01)
[2019-05-11] MEDS: levoTHYROXINE 75mcg tablet PO SCH (08:01)
[2019-05-11] MEDS: potassium Cl 20 mEq SR tablet PO SCH (08:01)
[2019-05-11] MEDS: lactobacillus rhamnosus 10,000 MMU CELLS/CAPSULE PO SCH (08:03)
[2019-05-11] MEDS: lisinopril 10 MG tablet PO SCH (08:03)
[2019-05-11] MEDS ORDERED: APIX5TAB3 PO (09:45)
[2019-05-11] MEDS ORDERED: CARV-50 PO (09:45)
[2019-05-11 11:00] VITALS: BP 145/48
--- NOTE | 2019-05-11 12:54 | NUR ---
Orienteer documentation: I have reviewed and agree with all interventions, assessments performed and documented by Chantale GRADY.
--- NOTE | 2019-05-11 13:06 | NUR ---
pt. d/c from facility. left with family from unit at 1226. declined to have staff walk her out. pt. IV was taken out intact. all discharge information given and understood. medications called into [address] pt. left with all personal belongings.
== END 2019-05-11 12:39 | disposition home or self-care (01) ==
LOC: ER 14:29 → MED 3N 21:50
PROVIDERS: ADMIT Hospitalist; ATTEND Family Medicine
DX: I48.92 Unspecified atrial flutter (principal); E87.6 Hypokalemia; E86.0 Dehydration; I25.10 Atherosclerotic heart disease of native coronary artery without angina pectoris; E78.00 Pure hypercholesterolemia, unspecified; I10 Essential (primary) hypertension; I73.9 Peripheral vascular disease, unspecified; E03.9 Hypothyroidism, unspecified; M19.90 Unspecified osteoarthritis, unspecified site; G89.29 Other chronic pain; Z90.710 Acquired absence of both cervix and uterus; Z88.1 Allergy status to other antibiotic agents; Z79.82 Long term (current) use of aspirin
CPT/HCPCS: 36415; 71045; 80048; 80053; 81003; 83605; 84145; 84443; 84484; 85025; 85379; 85610; 85730; 87040; 87081; 93005; 93306; 96361; 96365; 96366; 96375; 96376; 97116; 97161; 97530; 99284; G0378; J7030; Q0163; J3490

== ENCOUNTER 2019-05-17 20:52 | Inpatient (IN) | payer MEDICARE, BC ==
[~2019-05-17] VITALS: Ht 165.1 cm; Wt 51.8 kg
[~2019-05-17 20:52] MED LIST changes: -AMLO10TA13 PO; +APIX5TAB3 PO; +CARV-50 PO; -CHLO25TA2 PO; +LISI10TA4 PO
[2019-05-17 21:21] LABS: BASOPHILS % (AUTO) 0.5 % (0-1); EOSINOPHILS # (AUTO) 0.2 X10'3 (0-0.9); EOSINOPHILS % (AUTO) 2.2 % (0-6); HEMATOCRIT 31.1 % (35.0-45.0); HEMOGLOBIN 10.7 g/dl (12.0-16.0); LYMPHOCYTES # (AUTO) 1.7 X10'3 (1.1-4.8); LYMPHOCYTES % (AUTO) 20.1 % (21-51); MEAN CORPUSCULAR HEMOGLOBIN 33.5 PG (27.0-31.0); MEAN CORPUSCULAR HGB CONC 34.3 g/dL (33.0-36.5); MEAN CORPUSCULAR VOLUME 97.6 FL (78-98); MEAN PLATELET VOLUME 10.5 FL (7.4-10.4); MONOCYTES # (AUTO) 0.7 X10'3 (0-0.9); NEUTROPHILS # (AUTO) 5.6 X10'3 (1.8-7.7); NEUTROPHILS % (AUTO) 68.2 % (42-75); PLATELET COUNT 164 X10'3 (140-440); RED BLOOD COUNT 3.19 X10'6 (4.20-5.60); RED CELL DISTRIBUTION WIDTH 13.2 % (11.5-14.5); WHITE BLOOD COUNT 8.3 X10'3 (4.5-11.0)
[2019-05-17 21:31] LABS: ALANINE AMINOTRANSFERASE 102 U/L (12-78); ALBUMIN 3.1 G/DL (3.4-5.0); ALBUMIN/GLOBULIN RATIO 0.8 (1.1-1.5); ALKALINE PHOSPHATASE 76 IU/L (46-116); ANION GAP 10 (8-16); ASPARTATE AMINO TRANSFERASE 57 U/L (10-37); BILIRUBIN,TOTAL 0.3 MG/DL (0.1-1.0); BLOOD UREA NITROGEN 22 MG/DL (7-18); BUN/CREATININE RATIO 19.3 (6.6-38.0); CALCIUM 8.4 MG/DL (8.5-10.1); CHLORIDE 106 MMOL/L (99-107); CREATININE 1.14 MG/DL (0.40-0.90); GLUCOSE 112 MG/DL (70-104); SODIUM 139 MMOL/L (135-145); TOTAL CARBON DIOXIDE 22.8 MMOL/L (24-32); TOTAL PROTEIN 6.9 G/DL (6.4-8.2); eGFR 45 ML/MIN
[2019-05-17 21:33] LABS: POTASSIUM 4.3 MMOL/L (3.5-5.1)
[2019-05-17 21:42] LABS: D-DIMER 1.13 MG/L FEU (0-0.50); PARTIAL THROMBOPLASTIN TIME 27 SECONDS (22-32)
[2019-05-17] MEDS ORDERED: iohexol 350MG/ML 100ml bottle IV ONE (21:48)
[2019-05-17] MEDS ORDERED: levoFLOXACIN-Levaquin 750MG/D5 150 ML IV ONE (23:10)
[2019-05-17] MEDS ORDERED: cefepime 1GM/NS ADD-VANTAGE 100 ML IV ONE (23:10)
[2019-05-17] MEDS ORDERED: potassium CL 10mEq/100ml bag 100 ML IV PRN ×2 (23:35)
[2019-05-17] MEDS ORDERED: magnesium 4gm in 100ml NS 100 ML IV PRN (23:35)
[2019-05-17] MEDS ORDERED: acetaminophen 325mg tablet PO PRN ×2 (23:35)
[2019-05-17] MEDS ORDERED: potassium Cl 20 mEq SR tablet PO PRN (23:35)
[2019-05-17] MEDS ORDERED: magnesium hydroxide 30ml (MOM) UD suspension PO PRN (23:35)
[2019-05-17] MEDS ORDERED: ondansetron/PF 4mg/2ml inj IV PRN (23:35)
[2019-05-17] MEDS ORDERED: magnesium 2GM in 50ml NS 50 ML IV PRN (23:35)
[2019-05-17] MEDS ORDERED: mag hydrox/Alum hydrox/simeth 30ml oral suspension PO PRN (23:35)
[2019-05-17] MEDS ORDERED: magnesium Cl slow-release 64mg tablet PO PRN (23:35)
[2019-05-17] MEDS ORDERED: cefepime 1GM in D5W 50mL 50 ML IV ONE (23:38)
[2019-05-17 23:42] LABS: LARGE PLATELETS FEW; PLATELET ESTIMATE NORMAL
--- NOTE | 2019-05-18 00:43 | NUR ---
PATIENT ASSISTED TO BEDSIDE COMMODE AT THIS TIME, STANDBY ASSIST, SAFELY IN BED FOR COMFORT, INTERMITTENT DRY COUGH PRESENT.
[2019-05-18] MEDS ORDERED: diphenhydrAMINE 25mg capsule PO ONE (01:10)
--- NOTE | 2019-05-18 01:14 | NUR ---
Telephone call to Dr Monroe at this time regarding rash on patient related to media monitor leads. Per MD jones to DC media monitor at this time, order for benadryl received (see emar). YSABEL Hawkins made aware.
--- NOTE | 2019-05-18 01:22 | NUR ---
PT REPORTING TRANSFER OF MEDICAL RECORDS DIFFICULTY FROM HERE TO [employer]PER[employer] ARIEL OFFICE. SHE REPORTED CALLING SUNDAY MORNING AFTER HER LAST DISCHARGE AND OFFICE STATED THEY WERE WAITING ON RECORDS TO TRANFER FROM [facility]. SHE CALLED AGAIN THIS LAST SUNDAY AND HEARD THE SAME THING. WILL SHARE IN REPORT TO NEXT NURSE AND TO HOSPITALIST
--- NOTE | 2019-05-18 01:41 | NUR ---
TANYA REYNOLDS AT BEDSIDE FOR EVAL. MADE AWARE OF PT DIFFICULTIES OF RECORDS REACHING ARIEL REYNOLDS OFFICE AND HE WOULD MAKE SURE THEY WOULD GET RECORDS AFTER THIS VISIT. TANYA REYNOLDS ALSO REORDERED TELE MONITOR
[2019-05-18] MEDS: furosemide 10 MG/1 ML 10ml inj IV SCH ×3 (02:26→20:22)
--- NOTE | 2019-05-18 03:22 | NUR ---
PEDIATRIC TELE LEADS DO NOT MAKE PT BREAK OUT IN RASH ON CHEST, PT REPORTS NO ITCHINESS AT THIS TIME. WILL PASS THIS ON IN REPORT TO RECEIVING RN
[2019-05-18 05:13] LABS: BASOPHILS # (AUTO) 0.1 X10'3 (0-0.2); BASOPHILS % (AUTO) 0.9 % (0-1); EOSINOPHILS # (AUTO) 0.2 X10'3 (0-0.9); EOSINOPHILS % (AUTO) 2.6 % (0-6); HEMATOCRIT 33.8 % (35.0-45.0); HEMOGLOBIN 11.5 g/dl (12.0-16.0); LYMPHOCYTES # (AUTO) 1.4 X10'3 (1.1-4.8); LYMPHOCYTES % (AUTO) 18.3 % (21-51); MEAN CORPUSCULAR HEMOGLOBIN 33.2 PG (27.0-31.0); MEAN CORPUSCULAR HGB CONC 33.9 g/dL (33.0-36.5); MEAN CORPUSCULAR VOLUME 98.1 FL (78-98); MEAN PLATELET VOLUME 11.1 FL (7.4-10.4); MONOCYTES # (AUTO) 0.7 X10'3 (0-0.9); MONOCYTES % (AUTO) 9.5 % (2-12); NEUTROPHILS # (AUTO) 5.3 X10'3 (1.8-7.7); NEUTROPHILS % (AUTO) 68.7 % (42-75); PLATELET COUNT 176 X10'3 (140-440); RED BLOOD COUNT 3.45 X10'6 (4.20-5.60); RED CELL DISTRIBUTION WIDTH 13.7 % (11.5-14.5); WHITE BLOOD COUNT 7.7 X10'3 (4.5-11.0)
[2019-05-18] MEDS ORDERED: hydrALAZINE 20mg/ml inj. IV PRN (06:40)
--- NOTE | 2019-05-18 06:43 | NUR ---
ATTEMPTED TO CALL REPORT TO IP UNIT, PER ROBERTH BEDSIDE RN WILL CALL BACK WHEN SHE RETURNS TO THE FLOOR.
--- NOTE | 2019-05-18 06:50 | NUR ---
received report from er
[2019-05-18 07:00] VITALS: BP 184/71
--- NOTE | 2019-05-18 07:00 | NUR ---
pt arrived on floor awake, alert and on gurney
[2019-05-18] MEDS: K and/or MAG REPLACEMENT MC SCH (08:00)
[2019-05-18] MEDS: azithromycin/NS 500mg/250ml 250 ML IV SCH (08:30)
[2019-05-18] MEDS: aspirin 81mg tablet.DR PO SCH (08:35)
[2019-05-18] MEDS: potassium chloride 10mEq ER tablet PO SCH (08:35)
[2019-05-18] MEDS: lisinopril 5mg tablet PO SCH (08:36)
[2019-05-18] MEDS: levoTHYROXINE 75mcg tablet PO SCH (08:36)
[2019-05-18] MEDS: lactobacillus rhamnosus 10,000 MMU CELLS/CAPSULE PO SCH ×2 (08:36→20:14)
[2019-05-18 09:26] LABS: ALANINE AMINOTRANSFERASE 105 U/L (12-78); ALBUMIN 3.3 G/DL (3.4-5.0); ALBUMIN/GLOBULIN RATIO 0.8 (1.1-1.5); ALKALINE PHOSPHATASE 79 IU/L (46-116); ANION GAP 10 (8-16); ASPARTATE AMINO TRANSFERASE 48 U/L (10-37); BILIRUBIN,TOTAL 0.6 MG/DL (0.1-1.0); BLOOD UREA NITROGEN 17 MG/DL (7-18); BUN/CREATININE RATIO 16.7 (6.6-38.0); CALCIUM 8.4 MG/DL (8.5-10.1); CHLORIDE 105 MMOL/L (99-107); CREATININE 1.02 MG/DL (0.40-0.90); GLUCOSE 101 MG/DL (70-104); MAGNESIUM 1.8 MG/DL (1.5-2.4); POTASSIUM 3.2 MMOL/L (3.5-5.1); SODIUM 142 MMOL/L (135-145); TOTAL CARBON DIOXIDE 27.2 MMOL/L (24-32); TOTAL PROTEIN 7.3 G/DL (6.4-8.2); TROPONIN I < 0.04 NG/ML (0.0-0.05); eGFR 51 ML/MIN
[2019-05-18] MEDS ORDERED: CARV-50 PO (09:54)
[2019-05-18] MEDS ORDERED: CYAN500T63 PO (09:55)
[2019-05-18] MEDS: CefTRIAXone 2gm/D5W 50ml 50 ML IV SCH (09:59)
[2019-05-18] MEDS: potassium Cl 20 mEq SR tablet PO PRN ×3 (09:59→16:51)
[2019-05-18 10:00] VITALS: BP 145/51
[2019-05-18] MEDS: hydrocortisone 1% cream 28gm TP SCH ×2 (11:03→20:15)
[2019-05-18] MEDS: diphenhydrAMINE 25mg capsule PO PRN ×2 (15:00→21:53)
--- NOTE | 2019-05-18 16:53 | NUR ---
HOSPITALIST OKAYED TO ADMIN 20 MEQ OF K AT THIS TIME FOR A K OF 3.2, CONTINUE TO MONITOR
[2019-05-18 18:00] VITALS: BP 160/53
--- NOTE | 2019-05-18 18:31 | NUR ---
GAVE REPORT TO YSABEL ARENAS
--- NOTE | 2019-05-18 18:32 | NUR ---
Patient in room ORTHO 4012. I have received report from Ping GRADY and had the opportunity to ask questions and assume patient care.
[2019-05-18 22:00] VITALS: BP 139/42
[2019-05-19] MEDS: diphenhydrAMINE 25mg capsule PO PRN (03:52)
[2019-05-19 06:00] VITALS: BP 137/47
[2019-05-19 06:25] LABS: BASOPHILS % (AUTO) 0.1 % (0-1); EOSINOPHILS # (AUTO) 0.3 X10'3 (0-0.9); EOSINOPHILS % (AUTO) 4.9 % (0-6); HEMATOCRIT 37.6 % (35.0-45.0); HEMOGLOBIN 12.7 g/dl (12.0-16.0); LYMPHOCYTES # (AUTO) 1.3 X10'3 (1.1-4.8); MEAN CORPUSCULAR HEMOGLOBIN 32.7 PG (27.0-31.0); MEAN CORPUSCULAR HGB CONC 33.8 g/dL (33.0-36.5); MEAN CORPUSCULAR VOLUME 96.6 FL (78-98); MEAN PLATELET VOLUME 10.2 FL (7.4-10.4); MONOCYTES # (AUTO) 0.7 X10'3 (0-0.9); MONOCYTES % (AUTO) 10.2 % (2-12); NEUTROPHILS # (AUTO) 4.5 X10'3 (1.8-7.7); NEUTROPHILS % (AUTO) 65.8 % (42-75); PLATELET COUNT 179 X10'3 (140-440); RED BLOOD COUNT 3.89 X10'6 (4.20-5.60); RED CELL DISTRIBUTION WIDTH 13.4 % (11.5-14.5); WHITE BLOOD COUNT 6.9 X10'3 (4.5-11.0)
[2019-05-19 06:28] LABS: ALBUMIN 3.2 G/DL (3.4-5.0); ANION GAP 9 (8-16); BLOOD UREA NITROGEN 19 MG/DL (7-18); BUN/CREATININE RATIO 17.6 (6.6-38.0); CALCIUM 8.1 MG/DL (8.5-10.1); CHLORIDE 105 MMOL/L (99-107); CREATININE 1.08 MG/DL (0.40-0.90); GLUCOSE 95 MG/DL (70-104); MAGNESIUM 1.9 MG/DL (1.5-2.4); POTASSIUM 3.5 MMOL/L (3.5-5.1); SODIUM 142 MMOL/L (135-145); TOTAL CARBON DIOXIDE 28.3 MMOL/L (24-32); eGFR 48 ML/MIN
--- NOTE | 2019-05-19 06:32 | NUR ---
Problems reprioritized. Patient report given, questions answered & plan of care reviewed with Seble GRADY.
[2019-05-19] MEDS: hydrocortisone 1% cream 28gm TP SCH ×2 (08:00→19:30)
[2019-05-19] MEDS: K and/or MAG REPLACEMENT MC SCH (08:43)
[2019-05-19] MEDS: furosemide 10 MG/1 ML 10ml inj IV SCH ×2 (08:59→19:29)
[2019-05-19] MEDS: azithromycin/NS 500mg/250ml 250 ML IV SCH (09:00)
[2019-05-19] MEDS: CefTRIAXone 2gm/D5W 50ml 50 ML IV SCH (09:00)
[2019-05-19] MEDS: aspirin 81mg tablet.DR PO SCH (09:00)
[2019-05-19] MEDS: levoTHYROXINE 75mcg tablet PO SCH (09:00)
[2019-05-19] MEDS: lactobacillus rhamnosus 10,000 MMU CELLS/CAPSULE PO SCH ×2 (09:01→19:29)
[2019-05-19] MEDS: potassium chloride 10mEq ER tablet PO SCH (09:01)
[2019-05-19] MEDS: lisinopril 5mg tablet PO SCH (09:01)
[2019-05-19 10:00] VITALS: BP 140/48
[2019-05-19 18:00] VITALS: BP 153/48
--- NOTE | 2019-05-19 18:27 | NUR ---
Patient in room ORTHO 4012. I have received report from Seble GRADY and had the opportunity to ask questions and assume patient care.
[2019-05-19 19:30] VITALS: BP 134/44
[2019-05-19 22:00] VITALS: BP 162/62
[2019-05-20] MEDS: diphenhydrAMINE 25mg capsule PO PRN (01:32)
[2019-05-20 05:00] VITALS: BP 124/57
--- NOTE | 2019-05-20 06:20 | NUR ---
Problems reprioritized. Patient report given, questions answered & plan of care reviewed with Seble GRADY and Mike GRADY.
[2019-05-20 06:28] LABS: BASOPHILS % (AUTO) 0.4 % (0-1); EOSINOPHILS # (AUTO) 0.4 X10'3 (0-0.9); EOSINOPHILS % (AUTO) 5.7 % (0-6); HEMATOCRIT 37.3 % (35.0-45.0); HEMOGLOBIN 12.6 g/dl (12.0-16.0); LYMPHOCYTES # (AUTO) 1.7 X10'3 (1.1-4.8); LYMPHOCYTES % (AUTO) 24.7 % (21-51); MEAN CORPUSCULAR HEMOGLOBIN 32.5 PG (27.0-31.0); MEAN CORPUSCULAR HGB CONC 33.8 g/dL (33.0-36.5); MEAN CORPUSCULAR VOLUME 96.2 FL (78-98); MEAN PLATELET VOLUME 9.7 FL (7.4-10.4); MONOCYTES # (AUTO) 0.7 X10'3 (0-0.9); MONOCYTES % (AUTO) 10.2 % (2-12); PLATELET COUNT 195 X10'3 (140-440); RED BLOOD COUNT 3.88 X10'6 (4.20-5.60); RED CELL DISTRIBUTION WIDTH 13.2 % (11.5-14.5); WHITE BLOOD COUNT 6.8 X10'3 (4.5-11.0)
[2019-05-20 06:35] LABS: ALBUMIN 3.2 G/DL (3.4-5.0); ANION GAP 8 (8-16); BLOOD UREA NITROGEN 22 MG/DL (7-18); BUN/CREATININE RATIO 19.6 (6.6-38.0); CALCIUM 8.2 MG/DL (8.5-10.1); CHLORIDE 103 MMOL/L (99-107); CREATININE 1.12 MG/DL (0.40-0.90); GLUCOSE 99 MG/DL (70-104); MAGNESIUM 1.9 MG/DL (1.5-2.4); POTASSIUM 3.5 MMOL/L (3.5-5.1); SODIUM 141 MMOL/L (135-145); eGFR 46 ML/MIN
--- NOTE | 2019-05-20 06:53 | NUR ---
Patient in room ORTHO 4012. I have received report from Katja GRADY and had the opportunity to ask questions and assume patient care.
--- NOTE | 2019-05-20 06:59 | NUR ---
Patient in room ORTHO 4012. I have received report from Katja GRADY and had the opportunity to ask questions and assume patient care. Pt is in bed sleeping, all needs met at this time. will continue to monitor.
[2019-05-20] MEDS: levoTHYROXINE 75mcg tablet PO SCH (07:15)
[2019-05-20] MEDS: potassium chloride 10mEq ER tablet PO SCH (07:16)
[2019-05-20] MEDS: lisinopril 5mg tablet PO SCH (07:16)
[2019-05-20] MEDS: lactobacillus rhamnosus 10,000 MMU CELLS/CAPSULE PO SCH (07:17)
[2019-05-20] MEDS: aspirin 81mg tablet.DR PO SCH (07:17)
[2019-05-20] MEDS: CefTRIAXone 2gm/D5W 50ml 50 ML IV SCH (07:18)
[2019-05-20] MEDS: furosemide 10 MG/1 ML 10ml inj IV SCH (07:18)
[2019-05-20] MEDS: hydrocortisone 1% cream 28gm TP SCH (07:20)
[2019-05-20] MEDS: K and/or MAG REPLACEMENT MC SCH (07:25)
[2019-05-20] MEDS ORDERED: azithromycin 250mg tablet PO SCH (08:00)
[2019-05-20] MEDS ORDERED: FURO-150 PO (09:57)
[2019-05-20] MEDS ORDERED: LEVO500T2 PO (09:57)
[2019-05-20 10:00] VITALS: BP 140/43
--- NOTE | 2019-05-20 10:55 | NUR ---
IV d/c'd patient tolerated well, canula intact.
--- NOTE | 2019-05-20 11:41 | NUR ---
Patient is stable for discharge per md orders, discharge instructions reviewed with pt, all questions answered, new medication prescriptions called in to [facility] pharmacy on [address] per pt preference, IV dc'ed and clean dry dressing in place, pt discharged @ 1130, walked down to the [facility] with hospital staff, pt transferred via cab per pt preference, all belongings with pt at time of discharge..
== END 2019-05-20 11:27 | disposition home or self-care (01) | DRG 177 ==
LOC: ER 20:52 → ORTHO 4S 05-18 07:12 → CMPBEDREQ 05-19 21:12
PROVIDERS: ADMIT Hospitalist; ATTEND Family Medicine
PROC: B32T1ZZ Computerized Tomography (CT Scan) of Left Pulmonary Artery using Low Osmolar Contrast (ICD-10-PCS; principal; 2019-05-17)
PROC: B3201ZZ Computerized Tomography (CT Scan) of Thoracic Aorta using Low Osmolar Contrast (ICD-10-PCS; 2019-05-17)
PROC: B32S1ZZ Computerized Tomography (CT Scan) of Right Pulmonary Artery using Low Osmolar Contrast (ICD-10-PCS; 2019-05-17)
PROC: B52 Imaging, Veins, Computerized Tomography (CT Scan) (ICD-10-PCS; 2019-05-17)
DX: J69.0 Pneumonitis due to inhalation of food and vomit (principal); I50.33 Acute on chronic diastolic (congestive) heart failure; J96.01 Acute respiratory failure with hypoxia; J98.11 Atelectasis; E87.6 Hypokalemia; E87.70 Fluid overload, unspecified; E78.00 Pure hypercholesterolemia, unspecified; M19.90 Unspecified osteoarthritis, unspecified site; I11.0 Hypertensive heart disease with heart failure; J15.9 Unspecified bacterial pneumonia; E03.9 Hypothyroidism, unspecified; I25.10 Atherosclerotic heart disease of native coronary artery without angina pectoris; I25.2 Old myocardial infarction; Z80.3 Family history of malignant neoplasm of breast; Z82.49 Family history of ischemic heart disease and other diseases of the circulatory system; Z90.710 Acquired absence of both cervix and uterus; Z88.8 Allergy status to other drugs, medicaments and biological substances; Z91.018 Allergy to other foods; Z79.899 Other long term (current) drug therapy; Z79.82 Long term (current) use of aspirin; Z87.440 Personal history of urinary (tract) infections; Z87.01 Personal history of pneumonia (recurrent); Z98.49 Cataract extraction status, unspecified eye
CPT/HCPCS: 36415; 71045; 71275; 80048; 80053; 83605; 83735; 83880; 84145; 84484; 85025; 85379; 85610; 85730; 87040; 87081; 93005; 99285; G0378; J0456; J0692; J0696; J1940; J1956; Q0163; Q9967

== ENCOUNTER 2019-08-03 22:00 | Inpatient (IN) | payer MEDICARE, BC ==
[~2019-08-03] VITALS: Ht 165.1 cm; Wt 50.0 kg
[~2019-08-03 22:00] MED LIST changes: -APIX5TAB3 PO; +CYAN500T63 PO; +FURO-150 PO
[2019-08-03 22:48] LABS: BASOPHILS # (AUTO) 0.1 X10'3 (0-0.2); BASOPHILS % (AUTO) 0.6 % (0-1); EOSINOPHILS # (AUTO) 0.1 X10'3 (0-0.9); EOSINOPHILS % (AUTO) 1.3 % (0-6); HEMOGLOBIN 12.9 g/dl (12.0-16.0); LYMPHOCYTES # (AUTO) 1.9 X10'3 (1.1-4.8); LYMPHOCYTES % (AUTO) 22.6 % (21-51); MEAN CORPUSCULAR HEMOGLOBIN 32.8 PG (27.0-31.0); MEAN CORPUSCULAR VOLUME 96.3 FL (78-98); MEAN PLATELET VOLUME 10.4 FL (7.4-10.4); MONOCYTES # (AUTO) 0.6 X10'3 (0-0.9); MONOCYTES % (AUTO) 7.2 % (2-12); NEUTROPHILS # (AUTO) 5.8 X10'3 (1.8-7.7); NEUTROPHILS % (AUTO) 68.3 % (42-75); PLATELET COUNT 177 X10'3 (140-440); RED BLOOD COUNT 3.94 X10'6 (4.20-5.60); RED CELL DISTRIBUTION WIDTH 12.7 % (11.5-14.5); WHITE BLOOD COUNT 8.5 X10'3 (4.5-11.0)
[2019-08-03 23:10] LABS: PARTIAL THROMBOPLASTIN TIME 26 SECONDS (22-32)
[2019-08-03 23:18] LABS: ALBUMIN 3.8 G/DL (3.4-5.0); BLOOD UREA NITROGEN 27 MG/DL (7-18)
[2019-08-03 23:56] LABS: ALANINE AMINOTRANSFERASE 76 U/L (12-78); ALBUMIN/GLOBULIN RATIO 0.9 (1.1-1.5); ALKALINE PHOSPHATASE 83 IU/L (46-116); ANION GAP 9 (8-16); ASPARTATE AMINO TRANSFERASE 69 U/L (10-37); BILIRUBIN,TOTAL 0.3 MG/DL (0.1-1.0); BUN/CREATININE RATIO 23.1 (6.6-38.0); CALCIUM 9.7 MG/DL (8.5-10.1); CHLORIDE 104 MMOL/L (99-107); CREATININE 1.17 MG/DL (0.40-0.90); GLUCOSE 103 MG/DL (70-104); POTASSIUM 3.9 MMOL/L (3.5-5.1); SODIUM 140 MMOL/L (135-145); TOTAL CARBON DIOXIDE 26.7 MMOL/L (24-32); TOTAL PROTEIN 7.9 G/DL (6.4-8.2); eGFR 44 ML/MIN
[2019-08-04] MEDS ORDERED: ondansetron/PF 4mg/2ml inj IV PRN (00:10)
[2019-08-04] MEDS ORDERED: CefTRIAXone/D5W-Rocephin 1gm 50 ML IV ONE ×2 (00:10→11:00)
[2019-08-04] MEDS ORDERED: mag hydrox/Alum hydrox/simeth 30ml oral suspension PO PRN (00:10)
[2019-08-04] MEDS ORDERED: morphine 2 MG/ML inj. syringe IV PRN (00:10)
[2019-08-04] MEDS ORDERED: magnesium 4gm in 100ml NS 100 ML IV PRN (00:10)
[2019-08-04] MEDS ORDERED: magnesium 2GM in 50ml NS 50 ML IV PRN (00:10)
[2019-08-04] MEDS ORDERED: potassium Cl 20 mEq SR tablet PO PRN ×2 (00:10)
[2019-08-04] MEDS ORDERED: acetaminophen 325mg tablet PO PRN ×2 (00:10)
[2019-08-04] MEDS ORDERED: magnesium Cl slow-release 64mg tablet PO PRN (00:10)
[2019-08-04] MEDS ORDERED: magnesium hydroxide 30ml (MOM) UD suspension PO PRN (00:10)
[2019-08-04] MEDS ORDERED: potassium CL 10mEq/100ml bag 100 ML IV PRN ×2 (00:10)
[2019-08-04] MEDS ORDERED: aspirin 81mg tab.chew PO ONE (00:25)
--- NOTE | 2019-08-04 00:51 | NUR ---
Teressa verified. It just will not scan.
--- NOTE | 2019-08-04 01:00 | NUR ---
Patient in room PCU 3025. I have received report from Jennyfer GRADY and had the opportunity to ask questions and assume patient care.
[2019-08-04 01:36] VITALS: BP 162/81
--- NOTE | 2019-08-04 01:36 | NUR ---
Patient arrived to the unit from the ER via gurney. Patient hooked up to tele 46. Vital signs stable at this time. No complaint of pain. Currently on 2L O2 via NC with no report of shortness of breath. 2 RN skin check complete. Darting complete. MRSA nasal swab collected.
[2019-08-04] MEDS ORDERED: AMLO10TA PO (02:22)
[2019-08-04] MEDS ORDERED: LISI30TA4 PO (02:30)
[2019-08-04 06:00] VITALS: BP 135/54
--- NOTE | 2019-08-04 06:26 | NUR ---
Problems reprioritized. Patient report given, questions answered & plan of care reviewed with Amelia GRADY and Lizbeth GRADY.
--- NOTE | 2019-08-04 06:30 | NUR ---
Patient in room PCU 3025. I have received report from Zuly GRADY and had the opportunity to ask questions and assume patient care.
[2019-08-04] MEDS ORDERED: normal saline 1000ml 1,000 ML IV ONE (06:40)
[2019-08-04] MEDS: K and/or MAG REPLACEMENT MC SCH (08:00)
[2019-08-04] MEDS: aspirin 81mg tablet.DR PO SCH (08:26)
[2019-08-04] MEDS: lactobacillus rhamnosus 10,000 MMU CELLS/CAPSULE PO SCH ×2 (08:26→19:15)
[2019-08-04] MEDS: cyanocobalamin 500mcg tablet PO SCH (08:28)
[2019-08-04] MEDS: levoTHYROXINE 75mcg tablet PO SCH (08:28)
[2019-08-04] MEDS: enoxaparin 40mg/0.4ml syringe SQ SCH (08:30)
[2019-08-04] MEDS: amLODIPine 5mg tablet PO SCH (08:38)
[2019-08-04 11:00] VITALS: BP 138/51
--- NOTE | 2019-08-04 14:58 | NUR ---
Malnutrition consult: Pt admit w/ PNA. Pt has no edema/wounds, mild weakness, PO 75-100% avg heart healthy meals meeting needs, and no significant wt loss hx. At this time pt does not meet minimum malnutrition criteria. Will continue to monitor. Addendum: 08/04/19 at [address] Amended: Links added.
[2019-08-04 15:00] VITALS: BP 153/59
--- NOTE | 2019-08-04 15:42 | NUR ---
Orientee documentation: I have reviewed and agree with all interventions, assessments performed and documented by Lizbeth GRADY. Orientee Medication Administration: For this medication-pass time frame, all medication were reviewed, dispensed, administered and documented per hospital policy by Lizbeth GRADY.
[2019-08-04 18:00] VITALS: BP 135/57
--- NOTE | 2019-08-04 18:06 | NUR ---
Problems reprioritized. Patient report given, questions answered & plan of care reviewed with Zuly GRADY. Patient ambulating halls, stable at transfer of care.
--- NOTE | 2019-08-04 18:10 | NUR ---
Patient in room PCU 3025. I have received report from Amelia GRADY and had the opportunity to ask questions and assume patient care.
[2019-08-04 22:00] VITALS: BP 131/47
[2019-08-05] MEDS ORDERED: CefTRIAXone 2gm/D5W 50ml 50 ML IV SCH (01:00)
[2019-08-05 02:00] VITALS: BP 143/64
[2019-08-05 05:03] LABS: BASOPHILS % (AUTO) 0.5 % (0-1); EOSINOPHILS # (AUTO) 0.2 X10'3 (0-0.9); EOSINOPHILS % (AUTO) 2.2 % (0-6); HEMATOCRIT 36.5 % (35.0-45.0); HEMOGLOBIN 12.6 g/dl (12.0-16.0); LYMPHOCYTES # (AUTO) 1.3 X10'3 (1.1-4.8); LYMPHOCYTES % (AUTO) 16.4 % (21-51); MEAN CORPUSCULAR HGB CONC 34.7 g/dL (33.0-36.5); MEAN CORPUSCULAR VOLUME 95.1 FL (78-98); MEAN PLATELET VOLUME 10.3 FL (7.4-10.4); MONOCYTES # (AUTO) 0.7 X10'3 (0-0.9); MONOCYTES % (AUTO) 8.5 % (2-12); NEUTROPHILS # (AUTO) 5.6 X10'3 (1.8-7.7); NEUTROPHILS % (AUTO) 72.4 % (42-75); PLATELET COUNT 168 X10'3 (140-440); RED BLOOD COUNT 3.83 X10'6 (4.20-5.60); RED CELL DISTRIBUTION WIDTH 12.7 % (11.5-14.5); WHITE BLOOD COUNT 7.8 X10'3 (4.5-11.0)
[2019-08-05 05:24] LABS: ALBUMIN 3.3 G/DL (3.4-5.0); ANION GAP 7 (8-16); BLOOD UREA NITROGEN 14 MG/DL (7-18); BUN/CREATININE RATIO 15.2 (6.6-38.0); CALCIUM 8.9 MG/DL (8.5-10.1); CHLORIDE 103 MMOL/L (99-107); CREATININE 0.92 MG/DL (0.40-0.90); GLUCOSE 105 MG/DL (70-104); MAGNESIUM 1.9 MG/DL (1.5-2.4); POTASSIUM 3.4 MMOL/L (3.5-5.1); SODIUM 138 MMOL/L (135-145); TOTAL CARBON DIOXIDE 27.6 MMOL/L (24-32); eGFR 58 ML/MIN
[2019-08-05 06:00] VITALS: BP 129/54
--- NOTE | 2019-08-05 06:18 | NUR ---
Problems reprioritized. Patient report given, questions answered & plan of care reviewed with Bj GRADY.
--- NOTE | 2019-08-05 06:31 | NUR ---
Patient in room PCU 3025. I have received report from Zuly GRADY and had the opportunity to ask questions and assume patient care.
[2019-08-05] MEDS: aspirin 81mg tablet.DR PO SCH (07:30)
[2019-08-05] MEDS: amLODIPine 5mg tablet PO SCH (07:30)
[2019-08-05] MEDS: lactobacillus rhamnosus 10,000 MMU CELLS/CAPSULE PO SCH (07:30)
[2019-08-05] MEDS: cyanocobalamin 500mcg tablet PO SCH (07:30)
[2019-08-05] MEDS: levoTHYROXINE 75mcg tablet PO SCH (07:30)
[2019-08-05] MEDS: enoxaparin 40mg/0.4ml syringe SQ SCH (07:31)
[2019-08-05] MEDS: K and/or MAG REPLACEMENT MC SCH (08:00)
--- NOTE | 2019-08-05 09:11 | NUR ---
Dr. Mckay notified about patient's rashes and itchiness on the skin were previous tele pads were placed. Received order to d/c tele, security monitor notified. D/c'd tele as ordered
[2019-08-05] MEDS ORDERED: LEVO500T2 PO (09:48)
--- NOTE | 2019-08-05 10:59 | NUR ---
Discharged patient home, discharge instructions given to patient. Patient verbalized understanding of all instructions made. Peripheral IV catheter removed, tip intact. New prescription sent to pharmacy on file. Instructed patient to ensure she has all her belongings with her. Patient accompanied by a hospital volunteer via wheelchair. Patient stated she will just call a cab when she gets to the lobby.
== END 2019-08-05 10:57 | disposition home or self-care (01) | DRG 194 ==
LOC: ER 22:02 → ED HOLD 08-04 00:06 → PCU 3S 08-04 01:38
PROVIDERS: ADMIT Hospitalist; ATTEND Family Medicine
DX: J18.9 Pneumonia, unspecified organism (principal); N17.9 Acute kidney failure, unspecified; Z68.1 Body mass index [BMI] 19.9 or less, adult; E03.9 Hypothyroidism, unspecified; E78.00 Pure hypercholesterolemia, unspecified; E78.5 Hyperlipidemia, unspecified; I10 Essential (primary) hypertension; I25.10 Atherosclerotic heart disease of native coronary artery without angina pectoris; Z60.2 Problems related to living alone; I36.1 Nonrheumatic tricuspid (valve) insufficiency; G89.29 Other chronic pain; M54.9 Dorsalgia, unspecified; M19.90 Unspecified osteoarthritis, unspecified site; Z80.3 Family history of malignant neoplasm of breast; Z79.82 Long term (current) use of aspirin; Z79.899 Other long term (current) drug therapy; Z79.890 Hormone replacement therapy; Z88.8 Allergy status to other drugs, medicaments and biological substances; Z91.018 Allergy to other foods; Z82.49 Family history of ischemic heart disease and other diseases of the circulatory system; Z87.01 Personal history of pneumonia (recurrent); Z90.710 Acquired absence of both cervix and uterus; Z98.49 Cataract extraction status, unspecified eye; Z82.5 Family history of asthma and other chronic lower respiratory diseases
CPT/HCPCS: 36415; 71045; 80048; 80053; 83605; 83735; 83880; 84443; 84484; 85025; 85610; 85730; 87040; 87081; 93005; 99285; G0378; J0696; J1650; J2270; J7030

== ENCOUNTER 2019-09-02 03:31 | Emergency (ER) | payer MEDICARE, BC ==
[~2019-09-02] VITALS: Ht 165.1 cm; Wt 52.3 kg
[~2019-09-02 03:31] MED LIST changes: +AMLO10TA PO; -CARV-50 PO; -FURO-150 PO; -LISI10TA4 PO; +LISI30TA4 PO
[2019-09-02] MEDS ORDERED: acetaminophen 325mg tablet PO ONE (03:55)
[2019-09-02 05:25] LABS: PARTIAL THROMBOPLASTIN TIME 26 SECONDS (22-32)
[2019-09-02 05:30] LABS: ALANINE AMINOTRANSFERASE 26 U/L (12-78); ALBUMIN 4.1 G/DL (3.4-5.0); ALBUMIN/GLOBULIN RATIO 0.9 (1.1-1.5); ALKALINE PHOSPHATASE 85 IU/L (46-116); ANION GAP 9 (8-16); ASPARTATE AMINO TRANSFERASE 26 U/L (10-37); BILIRUBIN,TOTAL 0.4 MG/DL (0.1-1.0); BLOOD UREA NITROGEN 19 MG/DL (7-18); BUN/CREATININE RATIO 18.3 (6.6-38.0); CALCIUM 9.8 MG/DL (8.5-10.1); CHLORIDE 101 MMOL/L (99-107); CREATININE 1.04 MG/DL (0.40-0.90); GLUCOSE 108 MG/DL (70-104); POTASSIUM 3.7 MMOL/L (3.5-5.1); SODIUM 138 MMOL/L (135-145); TOTAL CARBON DIOXIDE 27.9 MMOL/L (24-32); TOTAL PROTEIN 8.8 G/DL (6.4-8.2); eGFR 50 ML/MIN
[2019-09-02 05:41] LABS: TROPONIN I < 0.04 NG/ML (0.0-0.05)
[2019-09-02 05:43] LABS: BASOPHILS % (AUTO) 0.4 % (0-1); EOSINOPHILS # (AUTO) 0.2 X10'3 (0-0.9); EOSINOPHILS % (AUTO) 2.8 % (0-6); HEMATOCRIT 43.9 % (35.0-45.0); LYMPHOCYTES % (AUTO) 17.6 % (21-51); MEAN CORPUSCULAR HEMOGLOBIN 32.7 PG (27.0-31.0); MEAN CORPUSCULAR HGB CONC 34.3 g/dL (33.0-36.5); MEAN CORPUSCULAR VOLUME 95.5 FL (78-98); MEAN PLATELET VOLUME 11.1 FL (7.4-10.4); MONOCYTES # (AUTO) 0.6 X10'3 (0-0.9); MONOCYTES % (AUTO) 10.3 % (2-12); NEUTROPHILS # (AUTO) 3.8 X10'3 (1.8-7.7); NEUTROPHILS % (AUTO) 68.9 % (42-75); PLATELET COUNT 166 X10'3 (140-440); RED CELL DISTRIBUTION WIDTH 13.3 % (11.5-14.5); WHITE BLOOD COUNT 5.6 X10'3 (4.5-11.0)
[2019-09-02 06:40] VITALS: BP 159/63
[2019-09-02 07:13] LABS: LARGE PLATELETS FEW; PLATELET ESTIMATE NORMAL
== END 2019-09-02 06:45 | disposition home or self-care (01) ==
LOC: ER 03:31
DX: J06.9 Acute upper respiratory infection, unspecified (principal); I25.10 Atherosclerotic heart disease of native coronary artery without angina pectoris; E78.00 Pure hypercholesterolemia, unspecified; I10 Essential (primary) hypertension; M19.90 Unspecified osteoarthritis, unspecified site; G89.29 Other chronic pain; R79.1 Abnormal coagulation profile; Z98.61 Coronary angioplasty status; Z90.710 Acquired absence of both cervix and uterus; Z60.2 Problems related to living alone; Z91.018 Allergy to other foods; Z91.09 Other allergy status, other than to drugs and biological substances; Z79.82 Long term (current) use of aspirin; Z79.899 Other long term (current) drug therapy
CPT/HCPCS: 36415; 71045; 80053; 83605; 83880; 84145; 84484; 85025; 85610; 85730; 87040; 93005; 99284

== ENCOUNTER 2019-11-05 21:40 | Emergency (ER) | payer MEDICARE, BC ==
[~2019-11-05] VITALS: Ht 165.1 cm; Wt 50.0 kg
[~2019-11-05 21:40] MED LIST changes: -AMLO10TA PO; +APIX2.5T PO; +ASCO1000 PO; +DILT90TA2 PO; -LISI30TA4 PO; +OKRA PEPSIN PO
[2019-11-05 22:04] LABS: BASOPHILS % (AUTO) 0.5 % (0-1); EOSINOPHILS # (AUTO) 0.2 X10'3 (0-0.9); EOSINOPHILS % (AUTO) 2.8 % (0-6); HEMATOCRIT 38.3 % (35.0-45.0); HEMOGLOBIN 13.3 g/dl (12.0-16.0); LYMPHOCYTES # (AUTO) 2.6 X10'3 (1.1-4.8); LYMPHOCYTES % (AUTO) 33.5 % (21-51); MEAN CORPUSCULAR HEMOGLOBIN 33.1 PG (27.0-31.0); MEAN CORPUSCULAR HGB CONC 34.6 g/dL (33.0-36.5); MEAN CORPUSCULAR VOLUME 95.7 FL (78-98); MEAN PLATELET VOLUME 10.2 FL (7.4-10.4); MONOCYTES # (AUTO) 0.7 X10'3 (0-0.9); MONOCYTES % (AUTO) 8.9 % (2-12); NEUTROPHILS # (AUTO) 4.1 X10'3 (1.8-7.7); NEUTROPHILS % (AUTO) 54.3 % (42-75); PLATELET COUNT 206 X10'3 (140-440); RED CELL DISTRIBUTION WIDTH 13.7 % (11.5-14.5); WHITE BLOOD COUNT 7.7 X10'3 (4.5-11.0)
[2019-11-05 22:19] LABS: ALANINE AMINOTRANSFERASE 23 U/L (12-78); ALBUMIN 4.1 G/DL (3.4-5.0); ALKALINE PHOSPHATASE 92 IU/L (46-116); ANION GAP 8 (8-16); ASPARTATE AMINO TRANSFERASE 10 U/L (10-37); BILIRUBIN,TOTAL 0.2 MG/DL (0.1-1.0); BLOOD UREA NITROGEN 20 MG/DL (7-18); CALCIUM 8.8 MG/DL (8.5-10.1); CHLORIDE 104 MMOL/L (99-107); GLUCOSE 102 MG/DL (70-104); POTASSIUM 3.9 MMOL/L (3.5-5.1); SODIUM 139 MMOL/L (135-145); TOTAL CARBON DIOXIDE 27.3 MMOL/L (24-32); TOTAL PROTEIN 8.1 G/DL (6.4-8.2); eGFR 52 ML/MIN
[2019-11-05 22:24] LABS: MAGNESIUM 2.1 MG/DL (1.5-2.4); TROPONIN I < 0.04 NG/ML (0.0-0.05)
[2019-11-05] MEDS ORDERED: DILT240C90 PO (23:10)
[2019-11-05] MEDS ORDERED: diltiazem 30mg tablet PO ONE (23:15)
[2019-11-05 23:21] VITALS: BP 136/51
== END 2019-11-05 23:23 | disposition home or self-care (01) ==
LOC: ER 21:41
DX: R00.2 Palpitations (principal); Z79.899 Other long term (current) drug therapy; M25.512 Pain in left shoulder; I48.91 Unspecified atrial fibrillation; I25.10 Atherosclerotic heart disease of native coronary artery without angina pectoris; E78.00 Pure hypercholesterolemia, unspecified; I10 Essential (primary) hypertension; M19.90 Unspecified osteoarthritis, unspecified site; G89.29 Other chronic pain; Z98.61 Coronary angioplasty status; Z90.710 Acquired absence of both cervix and uterus; Z60.2 Problems related to living alone; Z88.8 Allergy status to other drugs, medicaments and biological substances; Z79.82 Long term (current) use of aspirin; R00.0 Tachycardia, unspecified
CPT/HCPCS: 36415; 71045; 80053; 83735; 83880; 84484; 85025; 93005; 99284

== ENCOUNTER 2019-12-07 21:52 | Inpatient (IN) | payer MEDICARE, BC ==
[~2019-12-07] VITALS: Ht 165.1 cm; Wt 56.5 kg
[~2019-12-07 21:52] MED LIST changes: +AMIO100T PO; +CEPH500C5 PO; +DILT180C66 PO; -DILT90TA2 PO; -OKRA PEPSIN PO
[2019-12-07] MEDS ORDERED: ondansetron/PF 4mg/2ml inj IV ONE (22:10)
[2019-12-07] MEDS ORDERED: morphine 4 MG/ML inj SYRINge IV ONE ×2 (22:10→22:40)
--- NOTE | 2019-12-07 22:38 | NUR ---
Contacted Dolores Rocky, pt daughter, at pt request to notify her pt condition.
[2019-12-07 22:47] LABS: D-DIMER 1.83 MG/L FEU (0-0.50)
[2019-12-07 22:49] LABS: BASOPHILS # (AUTO) 0.1 X10'3 (0-0.2); BASOPHILS % (AUTO) 0.5 % (0-1); EOSINOPHILS # (AUTO) 0.3 X10'3 (0-0.9); EOSINOPHILS % (AUTO) 3.2 % (0-6); HEMATOCRIT 34.4 % (35.0-45.0); LYMPHOCYTES % (AUTO) 18.7 % (21-51); MEAN CORPUSCULAR HEMOGLOBIN 33.5 PG (27.0-31.0); MEAN CORPUSCULAR HGB CONC 34.8 g/dL (33.0-36.5); MEAN CORPUSCULAR VOLUME 96.2 FL (78-98); MEAN PLATELET VOLUME 9.4 FL (7.4-10.4); MONOCYTES # (AUTO) 0.8 X10'3 (0-0.9); MONOCYTES % (AUTO) 7.2 % (2-12); NEUTROPHILS # (AUTO) 7.4 X10'3 (1.8-7.7); NEUTROPHILS % (AUTO) 70.4 % (42-75); PLATELET COUNT 237 X10'3 (140-440); RED BLOOD COUNT 3.58 X10'6 (4.20-5.60); RED CELL DISTRIBUTION WIDTH 13.9 % (11.5-14.5); WHITE BLOOD COUNT 10.5 X10'3 (4.5-11.0)
[2019-12-07 22:59] LABS: ALANINE AMINOTRANSFERASE 19 U/L (12-78); ALBUMIN 3.4 G/DL (3.4-5.0); ALBUMIN/GLOBULIN RATIO 0.9 (1.1-1.5); ALKALINE PHOSPHATASE 79 IU/L (46-116); ANION GAP 10 (8-16); ASPARTATE AMINO TRANSFERASE 19 U/L (10-37); BILIRUBIN,TOTAL 0.2 MG/DL (0.1-1.0); BLOOD UREA NITROGEN 27 MG/DL (7-18); BUN/CREATININE RATIO 22.9 (6.6-38.0); CALCIUM 8.4 MG/DL (8.5-10.1); CHLORIDE 103 MMOL/L (99-107); CREATININE 1.18 MG/DL (0.40-0.90); GLUCOSE 108 MG/DL (70-104); POTASSIUM 3.9 MMOL/L (3.5-5.1); SODIUM 138 MMOL/L (135-145); TOTAL PROTEIN 7.2 G/DL (6.4-8.2); eGFR 43 ML/MIN
[2019-12-07] MEDS ORDERED: normal saline 1000ML IV soln IVB ONE (23:10)
--- NOTE | 2019-12-07 23:15 | NUR ---
PT SPB DECREASED TO 87. PT C/O INCREASED SOB, DIZZINESS. PT DIAPHORETIC. MD NOTIFIED OF CHANGE IN CONDITION. ORDERS FOR 500 ML BOLUS NS.
[2019-12-07] MEDS ORDERED: iohexol 350MG/ML 100ml bottle IV ONE ×2 (23:34→23:52)
[2019-12-08] MEDS ORDERED: ondansetron/PF 4mg/2ml inj IV ONE (00:25)
[2019-12-08] MEDS ORDERED: morphine 4 MG/ML inj SYRINge IV PRN (02:15)
[2019-12-08] MEDS ORDERED: proCHLORperazine 10 MG/2 ml inj IV ONE (02:15)
[2019-12-08] MEDS ORDERED: methylPREDNISolone sod succ/PF 40mg inj. IV ONE (02:50)
[2019-12-08] MEDS: normal saline 1000ml 1,000 ML IV SCH (03:04)
[2019-12-08] MEDS ORDERED: magnesium hydroxide 30ml (MOM) UD suspension PO PRN (03:05)
[2019-12-08] MEDS ORDERED: ondansetron/PF 4mg/2ml inj IV PRN (03:05)
[2019-12-08] MEDS ORDERED: mag hydrox/Alum hydrox/simeth 30ml oral suspension PO PRN (03:05)
[2019-12-08] MEDS ORDERED: morphine 2 MG/ML inj. syringe IV PRN (03:05)
[2019-12-08 04:04] VITALS: BP 107/60
[2019-12-08 06:00] VITALS: BP 97/58
--- NOTE | 2019-12-08 06:00 | NUR ---
Patient in room MED 310. I have received report from YSABEL Farah and had the opportunity to ask questions and assume patient care.
--- NOTE | 2019-12-08 07:37 | NUR ---
Paged radiographic technologist: "VJ Echo ordered RM 310. Thanks!"
[2019-12-08] MEDS: amiodarone 200mg tablet PO SCH (08:18)
[2019-12-08] MEDS: diltiazem CD 180mg cap (once-daily) PO SCH (08:18)
[2019-12-08] MEDS: cyanocobalamin 500mcg tablet PO SCH (08:18)
[2019-12-08] MEDS: ascorbic acid 500mg tablet PO SCH (08:19)
[2019-12-08] MEDS: aspirin 81mg tablet.DR PO SCH (08:20)
[2019-12-08] MEDS: apixaban 2.5mg tablet PO SCH ×2 (08:20→20:50)
[2019-12-08] MEDS: levoTHYROXINE 75mcg tablet PO SCH (08:20)
[2019-12-08 11:00] VITALS: BP 92/54
[2019-12-08 15:00] VITALS: BP 90/51
[2019-12-08] MEDS: proCHLORperazine 10mg tablet PO PRN (15:13)
--- NOTE | 2019-12-08 17:06 | NUR ---
Student documentation: I have reviewed and agree with all interventions, med pass, assessments performed and documented by YSABEL Greenberg.
--- NOTE | 2019-12-08 18:01 | NUR ---
Problems reprioritized. Patient report given, questions answered & plan of care reviewed with YSABEL Farah.
--- NOTE | 2019-12-08 18:15 | NUR ---
Patient in room MED 310. I have received report from Saba GRADY and had the opportunity to ask questions and assume patient care.
[2019-12-08 18:50] VITALS: BP 111/49
[2019-12-08 22:32] VITALS: BP 108/45
[2019-12-09 02:04] VITALS: BP 115/43
[2019-12-09 02:07] LABS: BASOPHILS # (AUTO) 0.1 X10'3 (0-0.2); BASOPHILS % (AUTO) 0.7 % (0-1); EOSINOPHILS % (AUTO) 0.3 % (0-6); HEMATOCRIT 31.7 % (35.0-45.0); HEMOGLOBIN 10.8 g/dl (12.0-16.0); LYMPHOCYTES # (AUTO) 1.1 X10'3 (1.1-4.8); LYMPHOCYTES % (AUTO) 8.6 % (21-51); MEAN CORPUSCULAR HEMOGLOBIN 33.2 PG (27.0-31.0); MEAN CORPUSCULAR HGB CONC 34.1 g/dL (33.0-36.5); MEAN CORPUSCULAR VOLUME 97.4 FL (78-98); MEAN PLATELET VOLUME 9.1 FL (7.4-10.4); MONOCYTES # (AUTO) 1.2 X10'3 (0-0.9); MONOCYTES % (AUTO) 9.5 % (2-12); NEUTROPHILS # (AUTO) 10.2 X10'3 (1.8-7.7); NEUTROPHILS % (AUTO) 80.9 % (42-75); PLATELET COUNT 197 X10'3 (140-440); RED BLOOD COUNT 3.26 X10'6 (4.20-5.60); RED CELL DISTRIBUTION WIDTH 14.1 % (11.5-14.5); WHITE BLOOD COUNT 12.6 X10'3 (4.5-11.0)
[2019-12-09 02:20] LABS: ALANINE AMINOTRANSFERASE 20 U/L (12-78); ALBUMIN 3.2 G/DL (3.4-5.0); ALBUMIN/GLOBULIN RATIO 0.9 (1.1-1.5); ALKALINE PHOSPHATASE 65 IU/L (46-116); ANION GAP 8 (8-16); ASPARTATE AMINO TRANSFERASE 17 U/L (10-37); BILIRUBIN,TOTAL 0.4 MG/DL (0.1-1.0); BLOOD UREA NITROGEN 39 MG/DL (7-18); BUN/CREATININE RATIO 23.8 (6.6-38.0); CALCIUM 8.1 MG/DL (8.5-10.1); CHLORIDE 103 MMOL/L (99-107); CREATININE 1.64 MG/DL (0.40-0.90); GLUCOSE 119 MG/DL (70-104); POTASSIUM 5.1 MMOL/L (3.5-5.1); SODIUM 137 MMOL/L (135-145); TOTAL CARBON DIOXIDE 25.6 MMOL/L (24-32); TOTAL PROTEIN 6.8 G/DL (6.4-8.2); eGFR 29 ML/MIN
[2019-12-09 06:00] VITALS: BP 124/62
--- NOTE | 2019-12-09 06:16 | NUR ---
Problems reprioritized. Patient report given, questions answered & plan of care reviewed with Corazon GRADY.
--- NOTE | 2019-12-09 07:01 | NUR ---
Patient in room MED 310. I have received report from irma mireles and had the opportunity to ask questions and assume patient care.
[2019-12-09] MEDS: aspirin 81mg tablet.DR PO SCH (08:00)
[2019-12-09] MEDS: levoTHYROXINE 75mcg tablet PO SCH (08:00)
[2019-12-09] MEDS: amiodarone 200mg tablet PO SCH (08:00)
[2019-12-09] MEDS: cyanocobalamin 500mcg tablet PO SCH (08:00)
[2019-12-09] MEDS: apixaban 2.5mg tablet PO SCH ×2 (08:00→19:44)
[2019-12-09] MEDS: diltiazem CD 180mg cap (once-daily) PO SCH (08:00)
[2019-12-09] MEDS: ascorbic acid 500mg tablet PO SCH (08:01)
[2019-12-09] MEDS ORDERED: predniSONE 5mg tablet PO ONE (10:00)
[2019-12-09] MEDS ORDERED: pantoprazole 40mg Tablet.DR PO SCH (10:00)
[2019-12-09] MEDS ORDERED: levoFLOXACIN 500mg tablet PO ONE (10:00)
[2019-12-09 11:00] VITALS: BP 108/53
[2019-12-09 15:00] VITALS: BP 123/65
[2019-12-09] MEDS: normal saline 1000ml 1,000 ML IV SCH (15:35)
[2019-12-09 18:00] VITALS: BP 118/67
[2019-12-09 22:00] VITALS: BP 139/63
--- NOTE | 2019-12-09 23:50 | NUR ---
MD Notified Patient complaining of SOB. Coarse crackles in upper lobes. intermitted moist cough, nonproductive. Placed on nasal canula 4L sating at 90%. Received orders for RT eval and treat, lurdes day, and xavi vazquez. Will continue to monitor.
[2019-12-09] MEDS ORDERED: benzonatate 100mg capsule PO PRN (23:55)
[2019-12-10] MEDS ORDERED: albuterol 1.25 MG/3 ML (1/2 strength) nebule NEB SCH
--- NOTE | 2019-12-10 00:06 | NUR ---
RT Paged Paged RT for eval and treat.
--- NOTE | 2019-12-10 01:11 | NUR ---
PATIENT WITH ACUTE SOB/DESAT AFTER FLUID RESUSCITATION. B/S DIM WITH CRACKLES. PLACED ON HIGH FLOW OXYGEN 13L TRAE N/C, RN STOPPED FLUIDS.
[2019-12-10 02:00] VITALS: BP 167/84
[2019-12-10 02:48] LABS: BASOPHILS % (AUTO) 0.4 % (0-1); EOSINOPHILS # (AUTO) 0.1 X10'3 (0-0.9); HEMATOCRIT 34.6 % (35.0-45.0); HEMOGLOBIN 11.7 g/dl (12.0-16.0); LYMPHOCYTES # (AUTO) 0.9 X10'3 (1.1-4.8); MEAN CORPUSCULAR HEMOGLOBIN 32.9 PG (27.0-31.0); MEAN CORPUSCULAR HGB CONC 33.9 g/dL (33.0-36.5); MEAN CORPUSCULAR VOLUME 97.1 FL (78-98); MEAN PLATELET VOLUME 9.3 FL (7.4-10.4); MONOCYTES # (AUTO) 0.8 X10'3 (0-0.9); MONOCYTES % (AUTO) 6.5 % (2-12); NEUTROPHILS # (AUTO) 9.8 X10'3 (1.8-7.7); NEUTROPHILS % (AUTO) 84.1 % (42-75); PLATELET COUNT 199 X10'3 (140-440); RED BLOOD COUNT 3.57 X10'6 (4.20-5.60); RED CELL DISTRIBUTION WIDTH 13.9 % (11.5-14.5); WHITE BLOOD COUNT 11.6 X10'3 (4.5-11.0)
[2019-12-10 03:04] LABS: ALANINE AMINOTRANSFERASE 16 U/L (12-78); ALBUMIN 3.4 G/DL (3.4-5.0); ALBUMIN/GLOBULIN RATIO 0.8 (1.1-1.5); ALKALINE PHOSPHATASE 72 IU/L (46-116); ANION GAP 9 (8-16); ASPARTATE AMINO TRANSFERASE 27 U/L (10-37); BILIRUBIN,TOTAL 0.5 MG/DL (0.1-1.0); BLOOD UREA NITROGEN 23 MG/DL (7-18); BUN/CREATININE RATIO 20.5 (6.6-38.0); CALCIUM 8.9 MG/DL (8.5-10.1); CHLORIDE 104 MMOL/L (99-107); CREATININE 1.12 MG/DL (0.40-0.90); GLUCOSE 123 MG/DL (70-104); POTASSIUM 4.2 MMOL/L (3.5-5.1); SODIUM 137 MMOL/L (135-145); TOTAL CARBON DIOXIDE 24.4 MMOL/L (24-32); TOTAL PROTEIN 7.6 G/DL (6.4-8.2); eGFR 46 ML/MIN
[2019-12-10] MEDS: acetaminophen 325mg tablet PO PRN ×2 (05:30→20:55)
[2019-12-10] MEDS: normal saline 1000ml 1,000 ML IV SCH (05:53)
[2019-12-10 06:00] VITALS: BP 151/77
--- NOTE | 2019-12-10 06:30 | NUR ---
Problems reprioritized. Patient report given, questions answered & plan of care reviewed with YSABEL Le.
[2019-12-10] MEDS: albuterol 2.5 MG/3 ML nebule NEB PRN ×2 (08:38→11:55)
--- NOTE | 2019-12-10 08:38 | NUR ---
PAGER ID: [phone] MESSAGE: rm 310. pt. Richar Gay. FYI pt. has been destating to 84% on 11L O2 on hif[place]. RT is currently at bedside about to do a treatment and put it up to 15L and pt. is at 89%. thank you. YSABEL Kenyon [phone]
[2019-12-10] MEDS ORDERED: furosemide 40mg/4ml inj IV ONE (08:40)
[2019-12-10] MEDS: amiodarone 200mg tablet PO SCH (08:53)
[2019-12-10] MEDS: ascorbic acid 500mg tablet PO SCH (08:53)
[2019-12-10] MEDS: levoTHYROXINE 75mcg tablet PO SCH (08:53)
[2019-12-10] MEDS: diltiazem CD 180mg cap (once-daily) PO SCH (08:53)
[2019-12-10] MEDS: aspirin 81mg tablet.DR PO SCH (08:53)
[2019-12-10] MEDS: cyanocobalamin 500mcg tablet PO SCH (08:53)
[2019-12-10] MEDS: apixaban 2.5mg tablet PO SCH ×2 (08:53→20:48)
[2019-12-10] MEDS: prednisone 10mg tablet PO SCH (08:55)
[2019-12-10 11:00] VITALS: BP 149/77
--- NOTE | 2019-12-10 11:13 | NUR ---
called [employer] to get pacemaker interrogated. the company is reaching out to their customer engagement representative Eveline to come out. Addendum: 12/10/19 at 1119 by Chantale Brizuela RN talked to Melvi, the [employer] customer engagement representative. she will be coming in the next 20 minutes.
--- NOTE | 2019-12-10 12:28 | NUR ---
PAGER ID: [phone] MESSAGE: 310. pt. Richar Gay. pacemaker was interrogated. the reps are recommending cardioversion and have reached out to Dr. Kilpatrick and CAROLA Montelongo about it. thank you. YSABEL Kenyon [phone]
[2019-12-10] MEDS ORDERED: digoxin 250mcg/ml 2ml ampule IV ONE (12:45)
[2019-12-10] MEDS: levoFLOXACIN 500mg tablet PO SCH (13:03)
--- NOTE | 2019-12-10 14:13 | NUR ---
PAGER ID: [phone] MESSAGE: Blaise Cueva on ACCE having runs of sustained vtach. Please advise. Jonnathan Yang RN [phone]
[2019-12-10 15:00] VITALS: BP 160/68
[2019-12-10] MEDS: diltiazem 30mg tablet PO SCH (16:20)
[2019-12-10 18:00] VITALS: BP 106/40
--- NOTE | 2019-12-10 18:15 | NUR ---
Patient in room MED 309. I have received report from Muna, and had the opportunity to ask questions and assume patient care.
--- NOTE | 2019-12-10 18:19 | NUR ---
Reviewed student nurse patient documentation and agreed upon. Addendum: 12/10/19 at 1820 by Missy Coyle RN Amended: Links added.
--- NOTE | 2019-12-10 18:42 | NUR ---
Problems reprioritized. Patient report given, questions answered & plan of care reviewed with YSABEL Celis.
--- NOTE | 2019-12-10 18:59 | NUR ---
Student documentation: I have reviewed and agree with all interventions, assessments performed and documented by JOSÉ Rowan.
--- NOTE | 2019-12-10 19:01 | NUR ---
Patient in room MED 310. I have received report from YSABEL Lima and had the opportunity to ask questions and assume patient care.
[2019-12-10] MEDS: docusate sod 100mg capsule PO SCH (20:48)
[2019-12-10] MEDS: furosemide 40mg/4ml inj IV SCH (20:48)
[2019-12-10] MEDS: lactobacillus rhamnosus 10,000 MMU CELLS/CAPSULE PO SCH (20:48)
[2019-12-10 22:00] VITALS: BP 139/50
[2019-12-11] VITALS (7 sets, daily range): BP systolic 111–136; BP diastolic 41–55
[2019-12-11] MEDS: diltiazem 30mg tablet PO SCH ×3 (00:30→15:44)
[2019-12-11 06:30] LABS: BASOPHILS # (AUTO) 0.1 X10'3 (0-0.2); BASOPHILS % (AUTO) 0.6 % (0-1); EOSINOPHILS # (AUTO) 0.1 X10'3 (0-0.9); EOSINOPHILS % (AUTO) 1.2 % (0-6); HEMATOCRIT 32.2 % (35.0-45.0); HEMOGLOBIN 11.2 g/dl (12.0-16.0); LYMPHOCYTES # (AUTO) 1.1 X10'3 (1.1-4.8); LYMPHOCYTES % (AUTO) 10.2 % (21-51); MEAN CORPUSCULAR HEMOGLOBIN 33.4 PG (27.0-31.0); MEAN CORPUSCULAR HGB CONC 34.8 g/dL (33.0-36.5); MEAN CORPUSCULAR VOLUME 96.2 FL (78-98); MEAN PLATELET VOLUME 9.7 FL (7.4-10.4); MONOCYTES # (AUTO) 0.8 X10'3 (0-0.9); MONOCYTES % (AUTO) 7.3 % (2-12); NEUTROPHILS # (AUTO) 8.8 X10'3 (1.8-7.7); NEUTROPHILS % (AUTO) 80.7 % (42-75); PLATELET COUNT 187 X10'3 (140-440); RED BLOOD COUNT 3.34 X10'6 (4.20-5.60); RED CELL DISTRIBUTION WIDTH 13.7 % (11.5-14.5); WHITE BLOOD COUNT 10.8 X10'3 (4.5-11.0)
--- NOTE | 2019-12-11 06:35 | NUR ---
Patient in room MED 310. I have received report from YSABEL Celis and had the opportunity to ask questions and assume patient care.
--- NOTE | 2019-12-11 06:36 | NUR ---
Problems reprioritized. Patient report given to Devon, questions answered & plan of care reviewed with .
[2019-12-11 07:01] LABS: ALANINE AMINOTRANSFERASE 19 U/L (12-78); ALBUMIN 3.1 G/DL (3.4-5.0); ALBUMIN/GLOBULIN RATIO 0.8 (1.1-1.5); ALKALINE PHOSPHATASE 66 IU/L (46-116); ANION GAP 7 (8-16); ASPARTATE AMINO TRANSFERASE 18 U/L (10-37); BILIRUBIN,TOTAL 0.6 MG/DL (0.1-1.0); BLOOD UREA NITROGEN 22 MG/DL (7-18); BUN/CREATININE RATIO 18.8 (6.6-38.0); CALCIUM 8.4 MG/DL (8.5-10.1); CHLORIDE 103 MMOL/L (99-107); CREATININE 1.17 MG/DL (0.40-0.90); GLUCOSE 112 MG/DL (70-104); POTASSIUM 3.4 MMOL/L (3.5-5.1); SODIUM 139 MMOL/L (135-145); TOTAL CARBON DIOXIDE 28.9 MMOL/L (24-32); TOTAL PROTEIN 7.2 G/DL (6.4-8.2); eGFR 44 ML/MIN
[2019-12-11] MEDS: levoTHYROXINE 75mcg tablet PO SCH (07:41)
[2019-12-11] MEDS: ascorbic acid 500mg tablet PO SCH (07:41)
[2019-12-11] MEDS: amiodarone 200mg tablet PO SCH (07:41)
[2019-12-11] MEDS: furosemide 40mg/4ml inj IV SCH ×2 (07:41→20:55)
[2019-12-11] MEDS: aspirin 81mg tablet.DR PO SCH (07:42)
[2019-12-11] MEDS: lactobacillus rhamnosus 10,000 MMU CELLS/CAPSULE PO SCH ×2 (07:42→20:56)
[2019-12-11] MEDS: prednisone 10mg tablet PO SCH (07:42)
[2019-12-11] MEDS: docusate sod 100mg capsule PO SCH ×2 (07:42→20:56)
[2019-12-11] MEDS: cyanocobalamin 500mcg tablet PO SCH (07:42)
[2019-12-11] MEDS: digoxin 125mcg (0.125mg) tablet PO SCH (07:43)
[2019-12-11] MEDS: apixaban 2.5mg tablet PO SCH ×2 (07:43→20:56)
[2019-12-11 07:49] LABS: MAGNESIUM 2.1 MG/DL (1.5-2.4)
--- NOTE | 2019-12-11 07:58 | NUR ---
PAGED DR. ENAMORADO "PAGER ID: [phone] MESSAGE: RM 310 7-BEAT RUN OF VTACH AT 0746, RHYTHM IS TRIGEMINY/FREQUENT PVCS. NO K/MAG REPLACEMENT ORDERED, K IS 3.4. REPLACEMENT ORDERS?? THANKS TAMAR MEJIA [id number]"
--- NOTE | 2019-12-11 08:27 | NUR ---
DR. ENAMORADO CALLED BACK - UPDATED ON PATIENT CONDITION, NEW ORDER RECEIVED - K/MAG REPLACEMENT PER PROTOCOL, KEEP K > 4.0, KEEP MG > 2.0
[2019-12-11] MEDS ORDERED: potassium Cl 20 mEq SR tablet PO PRN ×2 (08:30)
[2019-12-11] MEDS ORDERED: magnesium 4gm in 100ml NS 100 ML IV PRN (08:30)
[2019-12-11] MEDS ORDERED: magnesium Cl slow-release 64mg tablet PO PRN (08:30)
[2019-12-11] MEDS: K and/or MAG REPLACEMENT MC SCH ×2 (09:01→20:00)
[2019-12-11] MEDS: potassium CL 10mEq/100ml bag 100 ML IV PRN ×4 (09:01→12:35)
[2019-12-11] MEDS: levoFLOXACIN 500mg tablet PO SCH (10:07)
[2019-12-11] MEDS: proCHLORperazine 10mg tablet PO PRN (17:58)
[2019-12-11] MEDS: lactose-reduced food (Ensure Enlive) - 237ml bottle PO SCH (18:00)
--- NOTE | 2019-12-11 18:12 | NUR ---
Problems reprioritized. Patient report given, questions answered & plan of care reviewed with YSABEL Celis.
--- NOTE | 2019-12-11 19:47 | NUR ---
Patient in room MED 308. I have received report from Carmen, and had the opportunity to ask questions and assume patient care.
[2019-12-12 00:43] VITALS: BP 129/45
[2019-12-12] MEDS: diltiazem 30mg tablet PO SCH ×2 (00:43→08:41)
[2019-12-12 02:00] VITALS: BP 109/43
[2019-12-12 06:12] LABS: BASOPHILS % (AUTO) 0.3 % (0-1); EOSINOPHILS # (AUTO) 0.2 X10'3 (0-0.9); EOSINOPHILS % (AUTO) 1.3 % (0-6); HEMATOCRIT 35.3 % (35.0-45.0); HEMOGLOBIN 11.7 g/dl (12.0-16.0); LYMPHOCYTES # (AUTO) 1.6 X10'3 (1.1-4.8); LYMPHOCYTES % (AUTO) 12.8 % (21-51); MEAN CORPUSCULAR HEMOGLOBIN 32.1 PG (27.0-31.0); MEAN CORPUSCULAR HGB CONC 33.2 g/dL (33.0-36.5); MEAN CORPUSCULAR VOLUME 96.8 FL (78-98); MEAN PLATELET VOLUME 9.8 FL (7.4-10.4); MONOCYTES # (AUTO) 0.9 X10'3 (0-0.9); MONOCYTES % (AUTO) 7.5 % (2-12); NEUTROPHILS # (AUTO) 9.5 X10'3 (1.8-7.7); NEUTROPHILS % (AUTO) 78.1 % (42-75); PLATELET COUNT 254 X10'3 (140-440); RED BLOOD COUNT 3.65 X10'6 (4.20-5.60); WHITE BLOOD COUNT 12.2 X10'3 (4.5-11.0)
[2019-12-12 06:40] LABS: ALANINE AMINOTRANSFERASE 19 U/L (12-78); ALBUMIN 3.3 G/DL (3.4-5.0); ALBUMIN/GLOBULIN RATIO 0.7 (1.1-1.5); ALKALINE PHOSPHATASE 70 IU/L (46-116); ANION GAP 9 (8-16); ASPARTATE AMINO TRANSFERASE 19 U/L (10-37); BILIRUBIN,TOTAL 0.6 MG/DL (0.1-1.0); BLOOD UREA NITROGEN 30 MG/DL (7-18); BUN/CREATININE RATIO 21.3 (6.6-38.0); CALCIUM 8.6 MG/DL (8.5-10.1); CHLORIDE 99 MMOL/L (99-107); CREATININE 1.41 MG/DL (0.40-0.90); GLUCOSE 127 MG/DL (70-104); POTASSIUM 3.7 MMOL/L (3.5-5.1); SODIUM 138 MMOL/L (135-145); eGFR 35 ML/MIN
--- NOTE | 2019-12-12 06:52 | NUR ---
Patient in room MED 310. I have received report from YSABEL Celis and had the opportunity to ask questions and assume patient care.
--- NOTE | 2019-12-12 06:55 | NUR ---
Problems reprioritized. Patient report given to Tam, questions answered & plan of care reviewed with .
[2019-12-12] MEDS: K and/or MAG REPLACEMENT MC SCH (07:02)
[2019-12-12] MEDS: proCHLORperazine 10mg tablet PO PRN (07:09)
[2019-12-12] MEDS: lactobacillus rhamnosus 10,000 MMU CELLS/CAPSULE PO SCH (08:00)
[2019-12-12] MEDS: ascorbic acid 500mg tablet PO SCH (08:00)
[2019-12-12] MEDS: cyanocobalamin 500mcg tablet PO SCH (08:00)
[2019-12-12] MEDS: furosemide 40mg/4ml inj IV SCH (08:00)
[2019-12-12] MEDS: lactose-reduced food (Ensure Enlive) - 237ml bottle PO SCH (08:00)
[2019-12-12] MEDS: levoTHYROXINE 75mcg tablet PO SCH (08:00)
[2019-12-12] MEDS: docusate sod 100mg capsule PO SCH (08:00)
[2019-12-12 08:07] VITALS: BP 135/93
[2019-12-12] MEDS: apixaban 2.5mg tablet PO SCH (08:40)
[2019-12-12] MEDS: amiodarone 200mg tablet PO SCH (08:40)
[2019-12-12] MEDS: prednisone 10mg tablet PO SCH (08:40)
[2019-12-12] MEDS: aspirin 81mg tablet.DR PO SCH (08:41)
[2019-12-12] MEDS: digoxin 125mcg (0.125mg) tablet PO SCH (08:41)
[2019-12-12 11:00] VITALS: BP 124/41
[2019-12-12] MEDS ORDERED: DILT30TA5 PO (11:13)
[2019-12-12] MEDS ORDERED: LAN0.125T PO (11:13)
[2019-12-12] MEDS ORDERED: LEVO500T89 PO (11:13)
[2019-12-12] MEDS ORDERED: PRED10TA PO (11:13)
[2019-12-12] MEDS: levoFLOXACIN 500mg tablet PO SCH (11:30)
--- NOTE | 2019-12-12 11:30 | NUR ---
CASE MANAGEMENT PAGED: 310: MARLEN - [facility] [place] PROVIDED PATIENT TRANSPORT?
--- NOTE | 2019-12-12 13:55 | NUR ---
discharged home. PIV taken out. Medicare DC signed. Meds called in. Educated on follow-up, meds and pericarditis. Stable per Dr Florence for DC. Wheeled out and picked up by family.
[2019-12-12] MEDS ORDERED: levoFLOXACIN 250mg tablet PO SCH (14:37)
--- NOTE | 2019-12-15 11:48 | NUR ---
Case Management DC follow up: spoke to pt via telephone/Tizra. Reports feeling weak, "had a good BM last night, so I slept real good". [facility] nurse did home visit, reports, "vitals were good". Pt confirms staying hydrated. Denies CP, emergent general pain, SOB, respiratory distress, NV, dizziness, syncope episodes, abd pain, ELLIS, blurry vision. Verbalizes understanding of medications and why prescribed. Taking current Rx as ordered, no ase noted r/t polypharmacy/new meds. However, pt has yet to p-up new Rx r/t daughter was in a hurry to get home, and pt is just feeling too tired and weak. pt agrees to call [facility]/nurse to inquire about picking up Rx before home visit today. verbalizes understanding of s/s that would warrant -/ER visit for evaluation. Acknowledges importance of scheduling/keeping appointments w/PCP/referrals/specialists and will call today to schedule. Needs met, questions answered at DC. No further questions at this time. Addendum: 12/15/19 at 1203 by Tete Pro RN Case Management DC follow up: went over DC packet w/pt, focus on new medications and why important to start as ordered. pt appeared A/O, verbalized understanding of why meds are prescribed.
--- NOTE | 2019-12-15 12:15 | NUR ---
Case Management DC follow up: spoke to pt daughter/Dolores Hidalgo. Went over importance of new medications to be picked up as pt feels weak and stated does not have anyone to pickler helper for her. pt daughter stated pt called her, and she told pt if she cannot find someone to pickler helper meds, she would come up from [facility] and pickler helper for her. Stressed the importance of meds and why they are prescribed. Pt has already taken incorrect dose (new dose on new order) stayed w/old order for Cardizem @ 180 mg/24hrs. new dose is 990mg Q 8 hrs. pt was advised to ask pharmacist when to start the first dose of new order of Cardizem 90mg/24hr. Pt verbalized understanding. Pt daughter agreed she would probably need to come up from [facility] to pickler helper pt new Rx
== END 2019-12-12 13:20 | disposition home health service (06) | DRG 314 ==
LOC: ER 21:53 → ED HOLD 12-08 03:04 → MED 3N 12-08 03:40
PROVIDERS: ADMIT Internal Medicine; ATTEND Family Medicine
DX: I31.9 Disease of pericardium, unspecified (principal); N17.0 Acute kidney failure with tubular necrosis; J18.9 Pneumonia, unspecified organism; J96.01 Acute respiratory failure with hypoxia; I48.20 Chronic atrial fibrillation, unspecified; I50.32 Chronic diastolic (congestive) heart failure; I13.0 Hypertensive heart and chronic kidney disease with heart failure and stage 1 through stage 4 chronic kidney disease, or unspecified chronic kidney disease; I31.3 Pericardial effusion (noninflammatory); I25.10 Atherosclerotic heart disease of native coronary artery without angina pectoris; E78.00 Pure hypercholesterolemia, unspecified; M19.90 Unspecified osteoarthritis, unspecified site; G89.29 Other chronic pain; E78.5 Hyperlipidemia, unspecified; I73.9 Peripheral vascular disease, unspecified; D63.8 Anemia in other chronic diseases classified elsewhere; E03.9 Hypothyroidism, unspecified; N18.3 Chronic kidney disease, stage 3 (moderate); D53.9 Nutritional anemia, unspecified; I49.5 Sick sinus syndrome; M54.9 Dorsalgia, unspecified; Z66 Do not resuscitate; Z90.710 Acquired absence of both cervix and uterus; Z80.3 Family history of malignant neoplasm of breast; Z84.89 Family history of other specified conditions; Z95.0 Presence of cardiac pacemaker; Z88.8 Allergy status to other drugs, medicaments and biological substances; Z91.018 Allergy to other foods; Z79.01 Long term (current) use of anticoagulants; Z79.82 Long term (current) use of aspirin; Z79.899 Other long term (current) drug therapy; Z82.49 Family history of ischemic heart disease and other diseases of the circulatory system; I25.2 Old myocardial infarction
CPT/HCPCS: 36415; 71045; 71275; 80053; 80162; 82948; 83735; 84484; 85025; 85379; 87081; 93005; 93306; 94640; 94760; 96374; 96375; 97116; 97161; 97530; 99291; G0378; J0780; J1160; J1940; J2270; J2405; J3480; J7030; J7512; Q0164; Q9967

== ENCOUNTER 2019-12-17 09:11 | Emergency (ER) | payer MEDICARE, BC ==
[~2019-12-17] VITALS: Ht 165.1 cm; Wt 52.3 kg
[~2019-12-17 09:11] MED LIST changes: -CEPH500C5 PO; -DILT180C66 PO; +DILT30TA5 PO; +LAN0.125T PO; +LEVO500T89 PO; +PRED10TA PO
[2019-12-17 09:41] LABS: BASOPHILS # (AUTO) 0.1 X10'3 (0-0.2); BASOPHILS % (AUTO) 0.7 % (0-1); EOSINOPHILS # (AUTO) 0.4 X10'3 (0-0.9); EOSINOPHILS % (AUTO) 3.6 % (0-6); HEMATOCRIT 34.6 % (35.0-45.0); HEMOGLOBIN 11.5 g/dl (12.0-16.0); LYMPHOCYTES # (AUTO) 0.7 X10'3 (1.1-4.8); LYMPHOCYTES % (AUTO) 5.9 % (21-51); MEAN CORPUSCULAR HEMOGLOBIN 32.7 PG (27.0-31.0); MEAN CORPUSCULAR HGB CONC 33.4 g/dL (33.0-36.5); MEAN CORPUSCULAR VOLUME 97.8 FL (78-98); MEAN PLATELET VOLUME 9.2 FL (7.4-10.4); MONOCYTES # (AUTO) 0.9 X10'3 (0-0.9); MONOCYTES % (AUTO) 7.7 % (2-12); NEUTROPHILS # (AUTO) 10.1 X10'3 (1.8-7.7); NEUTROPHILS % (AUTO) 82.1 % (42-75); PLATELET COUNT 213 X10'3 (140-440); RED BLOOD COUNT 3.53 X10'6 (4.20-5.60); RED CELL DISTRIBUTION WIDTH 13.8 % (11.5-14.5); WHITE BLOOD COUNT 12.3 X10'3 (4.5-11.0)
[2019-12-17] MEDS ORDERED: DILT30TA10 PO (09:49)
[2019-12-17 09:55] LABS: ALANINE AMINOTRANSFERASE 27 U/L (12-78); ALBUMIN 3.4 G/DL (3.4-5.0); ALBUMIN/GLOBULIN RATIO 0.8 (1.1-1.5); ALKALINE PHOSPHATASE 69 IU/L (46-116); ANION GAP 8 (8-16); ASPARTATE AMINO TRANSFERASE 24 U/L (10-37); BILIRUBIN,TOTAL 0.3 MG/DL (0.1-1.0); BLOOD UREA NITROGEN 25 MG/DL (7-18); BUN/CREATININE RATIO 17.6 (6.6-38.0); CALCIUM 9.2 MG/DL (8.5-10.1); CHLORIDE 104 MMOL/L (99-107); CREATININE 1.42 MG/DL (0.40-0.90); GLUCOSE 166 MG/DL (70-104); SODIUM 140 MMOL/L (135-145); TOTAL CARBON DIOXIDE 28.3 MMOL/L (24-32); TOTAL PROTEIN 7.5 G/DL (6.4-8.2); eGFR 35 ML/MIN
[2019-12-17] MEDS ORDERED: morphine 4 MG/ML inj SYRINge IV ONE (11:05)
[2019-12-17] MEDS ORDERED: HYDR-3965 PO (12:14)
[2019-12-17 12:31] VITALS: BP 123/52
== END 2019-12-17 13:32 | disposition home or self-care (01) ==
LOC: ER 09:11
DX: R07.9 Chest pain, unspecified (principal); I49.5 Sick sinus syndrome; I25.10 Atherosclerotic heart disease of native coronary artery without angina pectoris; I50.9 Heart failure, unspecified; I11.0 Hypertensive heart disease with heart failure; E78.00 Pure hypercholesterolemia, unspecified; M19.90 Unspecified osteoarthritis, unspecified site; G89.29 Other chronic pain; Z87.440 Personal history of urinary (tract) infections; Z90.710 Acquired absence of both cervix and uterus; Z95.0 Presence of cardiac pacemaker; Z98.890 Other specified postprocedural states; Z60.2 Problems related to living alone; Z79.82 Long term (current) use of aspirin; Z79.899 Other long term (current) drug therapy
CPT/HCPCS: 36415; 71045; 80053; 84484; 85025; 96374; 99285; J2270

== ENCOUNTER 2020-01-30 09:21 | Inpatient (IN) | payer MEDICARE, BC ==
[~2020-01-30] VITALS: Ht 165.1 cm; Wt 70.7 kg
[~2020-01-30 09:21] MED LIST changes: +DILT180C53 PO; -DILT30TA5 PO; -LAN0.125T PO; -LEVO500T89 PO; -PRED10TA PO
[2020-01-30] MEDS ORDERED: CefTRIAXone 2gm/D5W 50ml 50 ML IV ONE (09:40)
[2020-01-30] MEDS ORDERED: azithromycin/NS 500mg/250ml 250 ML IV ONE ×2 (09:40→11:35)
--- NOTE | 2020-01-30 10:30 | NUR ---
Pt aware that we need a urine sample. Pt not able to obtain sample at this time.
[2020-01-30 10:36] LABS: BASOPHILS # (AUTO) 0.1 X10'3 (0-0.2); BASOPHILS % (AUTO) 0.6 % (0-1); EOSINOPHILS % (AUTO) 0.3 % (0-6); HEMATOCRIT 32.5 % (35.0-45.0); HEMOGLOBIN 10.5 g/dl (12.0-16.0); LYMPHOCYTES # (AUTO) 1.2 X10'3 (1.1-4.8); MEAN CORPUSCULAR HEMOGLOBIN 30.7 PG (27.0-31.0); MEAN CORPUSCULAR HGB CONC 32.3 g/dL (33.0-36.5); MEAN PLATELET VOLUME 9.1 FL (7.4-10.4); MONOCYTES # (AUTO) 1.1 X10'3 (0-0.9); MONOCYTES % (AUTO) 7.8 % (2-12); NEUTROPHILS # (AUTO) 11.1 X10'3 (1.8-7.7); NEUTROPHILS % (AUTO) 82.3 % (42-75); PLATELET COUNT 401 X10'3 (140-440); RED BLOOD COUNT 3.42 X10'6 (4.20-5.60); RED CELL DISTRIBUTION WIDTH 14.4 % (11.5-14.5); WHITE BLOOD COUNT 13.5 X10'3 (4.5-11.0)
[2020-01-30 10:54] LABS: ALANINE AMINOTRANSFERASE 19 U/L (12-78); ALBUMIN 2.9 G/DL (3.4-5.0); ALBUMIN/GLOBULIN RATIO 0.6 (1.1-1.5); ALKALINE PHOSPHATASE 111 IU/L (46-116); ANION GAP 12 (8-16); ASPARTATE AMINO TRANSFERASE 21 U/L (10-37); BILIRUBIN,TOTAL 0.4 MG/DL (0.1-1.0); BLOOD UREA NITROGEN 14 MG/DL (7-18); BUN/CREATININE RATIO 12.5 (6.6-38.0); CHLORIDE 102 MMOL/L (99-107); CREATININE 1.12 MG/DL (0.40-0.90); GLUCOSE 113 MG/DL (70-104); MAGNESIUM 2.3 MG/DL (1.5-2.4); POTASSIUM 3.7 MMOL/L (3.5-5.1); SODIUM 138 MMOL/L (135-145); TOTAL CARBON DIOXIDE 24.1 MMOL/L (24-32); TOTAL PROTEIN 7.6 G/DL (6.4-8.2); eGFR 46 ML/MIN
[2020-01-30 11:14] LABS: PARTIAL THROMBOPLASTIN TIME 33 SECONDS (22-32)
[2020-01-30] MEDS ORDERED: cefepime 2g/NS 100ml ADVANTAGE 100 ML IV ONE (11:35)
--- NOTE | 2020-01-30 11:36 | NUR ---
Pt not able to void yet.
[2020-01-30] MEDS ORDERED: CEFEPIME 2gm in D5W 50mL 50 ML IV ONE (11:45)
[2020-01-30] MEDS ORDERED: ondansetron/PF 4mg/2ml inj IV PRN (11:55)
[2020-01-30] MEDS ORDERED: acetaminophen 325mg tablet PO PRN (11:55)
[2020-01-30] MEDS ORDERED: morphine 2 MG/ML inj. syringe IV PRN ×2 (11:55)
[2020-01-30] MEDS ORDERED: mag hydrox/Alum hydrox/simeth 30ml oral suspension PO PRN (11:55)
[2020-01-30] MEDS ORDERED: HYDROcodone/acetaminophen 5mg/325mg tablet PO PRN (11:55)
[2020-01-30 12:42] LABS: TROPONIN I < 0.04 NG/ML (0.0-0.05)
--- NOTE | 2020-01-30 13:09 | NUR ---
Dr Lyn at bedside.
--- NOTE | 2020-01-30 13:34 | NUR ---
patient arrives at 1320, brought up in [facility], transfer w/o complications, oriented to room, call light in reach, will continue to monitor.
[2020-01-30 13:35] VITALS: BP 178/117
[2020-01-30] MEDS: potassium Cl 20 mEq SR tablet PO SCH (14:07)
[2020-01-30] MEDS: furosemide 20 MG/2 ML vial IV SCH ×2 (14:07→19:55)
[2020-01-30 15:00] VITALS: BP 144/78
[2020-01-30 15:04] LABS: CLARITY,URINE CLEAR (Clear); COLOR,URINE STRAW (Yellow); GLUCOSE, URINE NEGATIVE (Neg); KETONES,URINE TRACE mg/dl (Neg); LEUKOCYTE ESTERASE ,URINE NEGATIVE (Neg); NITRITES, URINE NEGATIVE (Neg); OCCULT BLOOD,URINE SMALL (Neg); PROTEIN,URINE NEGATIVE (Neg); UROBILINOGEN,URINE 0.2 E.U/dL (0.2-1.0)
[2020-01-30 15:10] LABS: UA COLLECTION TYPE NON-SPECIFIED
[2020-01-30 15:11] LABS: SQUAMOUS EPITHELIAL CELL,UR FEW /LPF (FEW)
[2020-01-30 15:13] LABS: BACTERIA,URINE 1+ /HPF (Neg)
[2020-01-30 18:00] VITALS: BP 153/51
--- NOTE | 2020-01-30 18:09 | NUR ---
Problems reprioritized. Patient report given, questions answered & plan of care reviewed with YSABEL Montgomery.
--- NOTE | 2020-01-30 18:09 | NUR ---
Patient in room PCU 3028. I have received report from Kari GRADY and had the opportunity to ask questions and assume patient care.
[2020-01-30] MEDS: diltiazem CD 180mg cap (once-daily) PO SCH (19:03)
[2020-01-30] MEDS: apixaban 2.5mg tablet PO SCH (19:55)
[2020-01-30] MEDS: ascorbic acid 500mg tablet PO SCH (19:55)
[2020-01-30] MEDS: lactobacillus rhamnosus 10,000 MMU CELLS/CAPSULE PO SCH (19:55)
[2020-01-30 22:00] VITALS: BP 135/59
[2020-01-31 02:00] VITALS: BP 119/52
[2020-01-31] MEDS: acetaminophen 325mg tablet PO PRN ×2 (05:17→17:13)
[2020-01-31 05:37] LABS: BASOPHILS % (AUTO) 0.4 % (0-1); EOSINOPHILS # (AUTO) 0.1 X10'3 (0-0.9); EOSINOPHILS % (AUTO) 0.9 % (0-6); HEMATOCRIT 36.7 % (35.0-45.0); HEMOGLOBIN 11.9 g/dl (12.0-16.0); LYMPHOCYTES # (AUTO) 1.5 X10'3 (1.1-4.8); LYMPHOCYTES % (AUTO) 15.6 % (21-51); MEAN CORPUSCULAR HEMOGLOBIN 30.6 PG (27.0-31.0); MEAN CORPUSCULAR HGB CONC 32.5 g/dL (33.0-36.5); MEAN CORPUSCULAR VOLUME 94.3 FL (78-98); MONOCYTES # (AUTO) 0.9 X10'3 (0-0.9); MONOCYTES % (AUTO) 9.5 % (2-12); NEUTROPHILS # (AUTO) 6.9 X10'3 (1.8-7.7); NEUTROPHILS % (AUTO) 73.6 % (42-75); PLATELET COUNT 323 X10'3 (140-440); WHITE BLOOD COUNT 9.3 X10'3 (4.5-11.0)
[2020-01-31 06:02] LABS: ALBUMIN 2.5 G/DL (3.4-5.0); ANION GAP 9 (8-16); BLOOD UREA NITROGEN 16 MG/DL (7-18); BUN/CREATININE RATIO 13.9 (6.6-38.0); CALCIUM 8.5 MG/DL (8.5-10.1); CHLORIDE 103 MMOL/L (99-107); CREATININE 1.15 MG/DL (0.40-0.90); GLUCOSE 130 MG/DL (70-104); POTASSIUM 3.8 MMOL/L (3.5-5.1); SODIUM 138 MMOL/L (135-145); TOTAL CARBON DIOXIDE 25.9 MMOL/L (24-32); eGFR 44 ML/MIN
--- NOTE | 2020-01-31 06:13 | NUR ---
Patient in room [facility] 3028. I have received report from YSABEL Lee and had the opportunity to ask questions and assume patient care. Addendum: 01/31/20 at 0626 by Kari Lewis RN Patient in room [place] [address]. I have received report from YSABEL Montgomery and had the opportunity to ask questions and assume patient care.
--- NOTE | 2020-01-31 06:24 | NUR ---
Problems reprioritized. Patient report given, questions answered & plan of care reviewed with Kari GRADY.
[2020-01-31 07:00] VITALS: BP 109/59
[2020-01-31] MEDS: ascorbic acid 500mg tablet PO SCH ×2 (08:03→19:55)
[2020-01-31] MEDS: levoTHYROXINE 75mcg tablet PO SCH (08:03)
[2020-01-31] MEDS: apixaban 2.5mg tablet PO SCH ×2 (08:03→19:55)
[2020-01-31] MEDS: lactobacillus rhamnosus 10,000 MMU CELLS/CAPSULE PO SCH ×2 (08:03→19:55)
[2020-01-31] MEDS: furosemide 20 MG/2 ML vial IV SCH ×2 (08:03→19:55)
[2020-01-31] MEDS: aspirin 81mg tablet.DR PO SCH (08:03)
[2020-01-31] MEDS: cyanocobalamin 500mcg tablet PO SCH (08:04)
[2020-01-31] MEDS: amiodarone 100mg tablet PO SCH (08:04)
[2020-01-31] MEDS: magnesium hydroxide 30ml (MOM) UD suspension PO PRN ×2 (08:11→11:45)
[2020-01-31 11:00] VITALS: BP 109/44
[2020-01-31] MEDS: potassium Cl 20 mEq SR tablet PO SCH (11:40)
[2020-01-31 15:00] VITALS: BP 140/39
[2020-01-31 18:00] VITALS: BP 138/39
--- NOTE | 2020-01-31 18:07 | NUR ---
Problems reprioritized. Patient report given, questions answered & plan of care reviewed with YSABEL Montgomery.
--- NOTE | 2020-01-31 18:09 | NUR ---
Patient in room PCU 3028. I have received report from Kari GRADY and had the opportunity to ask questions and assume patient care.
[2020-01-31] MEDS: diltiazem CD 180mg cap (once-daily) PO SCH (18:37)
[2020-01-31 22:00] VITALS: BP 111/43
[2020-02-01 02:00] VITALS: BP 128/46
[2020-02-01 06:10] LABS: BASOPHILS % (AUTO) 0.5 % (0-1); EOSINOPHILS # (AUTO) 0.1 X10'3 (0-0.9); EOSINOPHILS % (AUTO) 1.8 % (0-6); HEMATOCRIT 38.4 % (35.0-45.0); HEMOGLOBIN 12.3 g/dl (12.0-16.0); LYMPHOCYTES # (AUTO) 1.2 X10'3 (1.1-4.8); LYMPHOCYTES % (AUTO) 16.8 % (21-51); MEAN CORPUSCULAR HEMOGLOBIN 30.6 PG (27.0-31.0); MEAN CORPUSCULAR VOLUME 95.6 FL (78-98); MEAN PLATELET VOLUME 9.2 FL (7.4-10.4); MONOCYTES # (AUTO) 0.5 X10'3 (0-0.9); MONOCYTES % (AUTO) 7.5 % (2-12); NEUTROPHILS # (AUTO) 5.1 X10'3 (1.8-7.7); NEUTROPHILS % (AUTO) 73.4 % (42-75); PLATELET COUNT 345 X10'3 (140-440); RED BLOOD COUNT 4.02 X10'6 (4.20-5.60); RED CELL DISTRIBUTION WIDTH 14.7 % (11.5-14.5)
--- NOTE | 2020-02-01 06:16 | NUR ---
Problems reprioritized. Patient report given, questions answered & plan of care reviewed with Amelia GRADY.
[2020-02-01 06:40] LABS: ALBUMIN 2.7 G/DL (3.4-5.0); ANION GAP 10 (8-16); BLOOD UREA NITROGEN 19 MG/DL (7-18); BUN/CREATININE RATIO 14.6 (6.6-38.0); CALCIUM 8.6 MG/DL (8.5-10.1); CHLORIDE 102 MMOL/L (99-107); GLUCOSE 102 MG/DL (70-104); POTASSIUM 3.6 MMOL/L (3.5-5.1); SODIUM 140 MMOL/L (135-145); TOTAL CARBON DIOXIDE 27.8 MMOL/L (24-32); eGFR 39 ML/MIN
--- NOTE | 2020-02-01 06:48 | NUR ---
Patient in room PCU 3026. I have received report from Ulises GRADY and had the opportunity to ask questions and assume patient care.
[2020-02-01 07:00] VITALS: BP 116/93
[2020-02-01] MEDS: furosemide 20 MG/2 ML vial IV SCH ×2 (08:35→20:32)
[2020-02-01] MEDS: apixaban 2.5mg tablet PO SCH ×2 (08:35→20:00)
[2020-02-01] MEDS: cyanocobalamin 500mcg tablet PO SCH (08:35)
[2020-02-01] MEDS: aspirin 81mg tablet.DR PO SCH (08:35)
[2020-02-01] MEDS: lactobacillus rhamnosus 10,000 MMU CELLS/CAPSULE PO SCH ×2 (08:35→20:32)
[2020-02-01] MEDS: levoTHYROXINE 75mcg tablet PO SCH (08:35)
[2020-02-01] MEDS: amiodarone 100mg tablet PO SCH (08:35)
[2020-02-01] MEDS: ascorbic acid 500mg tablet PO SCH ×2 (08:36→20:32)
[2020-02-01 11:00] VITALS: BP 132/45
[2020-02-01] MEDS: potassium Cl 20 mEq SR tablet PO SCH (13:31)
[2020-02-01 18:00] VITALS: BP 149/39
--- NOTE | 2020-02-01 18:03 | NUR ---
6Problems reprioritized. Patient report given, questions answered & plan of care reviewed with Ulises GRADY.
[2020-02-01] MEDS: diltiazem CD 180mg cap (once-daily) PO SCH (20:32)
[2020-02-01] MEDS: acetaminophen 325mg tablet PO PRN (20:44)
[2020-02-01 23:00] VITALS: BP 114/45
[2020-02-02 02:00] VITALS: BP 116/48
[2020-02-02 05:09] LABS: ALBUMIN 2.7 G/DL (3.4-5.0); ANION GAP 7 (8-16); BASOPHILS % (AUTO) 0.6 % (0-1); BLOOD UREA NITROGEN 20 MG/DL (7-18); BUN/CREATININE RATIO 16.3 (6.6-38.0); CALCIUM 8.6 MG/DL (8.5-10.1); CHLORIDE 102 MMOL/L (99-107); CREATININE 1.23 MG/DL (0.40-0.90); EOSINOPHILS # (AUTO) 0.2 X10'3 (0-0.9); EOSINOPHILS % (AUTO) 3.4 % (0-6); GLUCOSE 95 MG/DL (70-104); HEMATOCRIT 34.8 % (35.0-45.0); HEMOGLOBIN 11.4 g/dl (12.0-16.0); LYMPHOCYTES # (AUTO) 1.1 X10'3 (1.1-4.8); LYMPHOCYTES % (AUTO) 20.2 % (21-51); MEAN CORPUSCULAR HEMOGLOBIN 31.1 PG (27.0-31.0); MEAN CORPUSCULAR HGB CONC 32.9 g/dL (33.0-36.5); MEAN CORPUSCULAR VOLUME 94.7 FL (78-98); MEAN PLATELET VOLUME 9.2 FL (7.4-10.4); MONOCYTES # (AUTO) 0.4 X10'3 (0-0.9); MONOCYTES % (AUTO) 8.6 % (2-12); NEUTROPHILS # (AUTO) 3.5 X10'3 (1.8-7.7); NEUTROPHILS % (AUTO) 67.2 % (42-75); PLATELET COUNT 324 X10'3 (140-440); RED BLOOD COUNT 3.67 X10'6 (4.20-5.60); RED CELL DISTRIBUTION WIDTH 14.4 % (11.5-14.5); SODIUM 140 MMOL/L (135-145); TOTAL CARBON DIOXIDE 31.2 MMOL/L (24-32); WHITE BLOOD COUNT 5.2 X10'3 (4.5-11.0); eGFR 41 ML/MIN
[2020-02-02 06:00] VITALS: BP 141/79
--- NOTE | 2020-02-02 06:43 | NUR ---
Problems reprioritized. Patient report given, questions answered & plan of care reviewed with Abeba GRADY.
--- NOTE | 2020-02-02 06:45 | NUR ---
Patient in room PCU 3028. I have received report from Ulises GRADY and had the opportunity to ask questions and assume patient care.
[2020-02-02] MEDS: apixaban 2.5mg tablet PO SCH (06:46)
--- NOTE | 2020-02-02 06:54 | NUR ---
I called Angio dept, spoke to the staff about patient's thoracentesis procedure expected today. He could not give me an estimate of what time the procedure will be. I have told him that patient's blood thinner Eliquis has been held
[2020-02-02] MEDS: aspirin 81mg tablet.DR PO SCH (08:00)
[2020-02-02] MEDS: furosemide 20 MG/2 ML vial IV SCH (08:02)
[2020-02-02] MEDS: levoTHYROXINE 75mcg tablet PO SCH (08:03)
[2020-02-02] MEDS: cyanocobalamin 500mcg tablet PO SCH (08:03)
[2020-02-02] MEDS: ascorbic acid 500mg tablet PO SCH (08:03)
[2020-02-02] MEDS: lactobacillus rhamnosus 10,000 MMU CELLS/CAPSULE PO SCH (08:03)
[2020-02-02] MEDS: amiodarone 100mg tablet PO SCH (08:03)
[2020-02-02 10:33] VITALS: BP 158/52
[2020-02-02 10:45] VITALS: BP 131/112
[2020-02-02] MEDS ORDERED: FURO-150 PO (11:24)
[2020-02-02 12:43] LABS: LACTATE DEHYDROGENASE 252 U/L (81-234)
[2020-02-02] MEDS: potassium Cl 20 mEq SR tablet PO SCH (13:13)
--- NOTE | 2020-02-02 13:14 | NUR ---
Discharge instructions given to patient, patient verbalized understanding of all instructions made including monitoring her weight daily and logging it into the log sheet provided. New prescription for Lasix transmitted electronically to the pharmacy of choice on file. Peripheral IV catheter removed, tip intact. Per [facility] home health service has been arranged already. Yellow cab contacted for patient's ride per patient's request. Patient able to ambulate from her bed to the bathroom and hallway, O2 sat was 96-97% on room air. Patient stated she already has oxygen at home that she only wears at night.
--- NOTE | 2020-02-02 13:32 | NUR ---
Patient declined nursing staff to call for her follow up appointment post-discharge. She states "No, I 'll just do it when I get home!"Charge nurse Daniel notified.
--- NOTE | 2020-02-04 10:57 | NUR ---
Case Management DC follow up: spoke to pt via telephone; resides at [facility] assisted living: reports"doing a lot better, can breathe easier" Daily weight compliance: status post-thoracentiesis. Denies acute/persistent CP, emergent general pain, SOB, resp distress, NV, vertigo, syncope, ELLIS, general/concerning bruising, bleeding, fever, diaphoreses, confusion. Verbalizes understanding of s/s that would warrant 9-11/ER visit for further evaluation. Verbalizes understanding of current and/or new Rx Lasix; taking as ordered, no ase noted r/t polypharmacy. Acknowledges need to schedule/keep follow up appts w/PCP Sammy, Product Applications Scientist/Steve will call pt to schedule appt. All questions/concerns addressed and answered at DC; Verbalizes understanding of post status after-care compliance. No further questions at this time.
== END 2020-02-02 13:33 | disposition home health service (06) | DRG 194 ==
LOC: ER 09:21 → ED HOLD 11:51 → PCU 3S 13:25
PROVIDERS: ADMIT Internal Medicine; ATTEND Internal Medicine
PROC: 0W993ZX Drainage of Right Pleural Cavity, Percutaneous Approach, Diagnostic (ICD-10-PCS; principal; 2020-01-30)
DX: J18.9 Pneumonia, unspecified organism (principal); I13.0 Hypertensive heart and chronic kidney disease with heart failure and stage 1 through stage 4 chronic kidney disease, or unspecified chronic kidney disease; I31.3 Pericardial effusion (noninflammatory); J96.11 Chronic respiratory failure with hypoxia; J91.8 Pleural effusion in other conditions classified elsewhere; I50.813 Acute on chronic right heart failure; D64.9 Anemia, unspecified; E03.9 Hypothyroidism, unspecified; N18.9 Chronic kidney disease, unspecified; E78.00 Pure hypercholesterolemia, unspecified; I25.10 Atherosclerotic heart disease of native coronary artery without angina pectoris; I27.81 Cor pulmonale (chronic); G89.29 Other chronic pain; I49.5 Sick sinus syndrome; M19.90 Unspecified osteoarthritis, unspecified site; M54.9 Dorsalgia, unspecified; I50.9 Heart failure, unspecified; I48.0 Paroxysmal atrial fibrillation; I73.9 Peripheral vascular disease, unspecified; Z60.2 Problems related to living alone; Z66 Do not resuscitate; Z79.01 Long term (current) use of anticoagulants; Z79.82 Long term (current) use of aspirin; Z79.899 Other long term (current) drug therapy; Z80.3 Family history of malignant neoplasm of breast; Z90.710 Acquired absence of both cervix and uterus; Z95.0 Presence of cardiac pacemaker; Z88.8 Allergy status to other drugs, medicaments and biological substances; Z98.49 Cataract extraction status, unspecified eye; Z82.5 Family history of asthma and other chronic lower respiratory diseases
CPT/HCPCS: 32555; 36415; 71045; 80048; 80053; 81001; 83605; 83615; 83735; 83880; 84145; 84484; 85025; 85610; 85730; 87040; 87081; 87088; 93005; 93308; 96365; 96368; 97110; 97116; 97161; 97530; 99285; G0378; J0456; J0692; J0696; J1940; J2405

== ENCOUNTER 2020-03-18 09:14 | Outpatient (CLI) | payer MEDICARE, BC ==
[~2020-03-18 09:14] MED LIST changes: +FURO-150 PO
== END 2020-03-18 23:59 | disposition home or self-care (01) ==
LOC: RAD 09:14
PROVIDERS: ATTEND Internal Medicine Critical Care Medicine
DX: J44.9 Chronic obstructive pulmonary disease, unspecified (principal); R06.02 Shortness of breath; J90 Pleural effusion, not elsewhere classified
CPT/HCPCS: 71046

== ENCOUNTER 2020-04-05 07:07 | Emergency (ER) | payer MEDICARE, BC ==
[~2020-04-05] VITALS: Ht 165.1 cm; Wt 52.3 kg
[2020-04-05 07:36] LABS: BASOPHILS # (AUTO) 0.1 X10'3 (0-0.2); BASOPHILS % (AUTO) 0.8 % (0-1); EOSINOPHILS # (AUTO) 0.1 X10'3 (0-0.9); EOSINOPHILS % (AUTO) 0.7 % (0-6); HEMATOCRIT 38.3 % (35.0-45.0); HEMOGLOBIN 12.5 g/dl (12.0-16.0); LYMPHOCYTES # (AUTO) 1.6 X10'3 (1.1-4.8); LYMPHOCYTES % (AUTO) 15.6 % (21-51); MEAN CORPUSCULAR HEMOGLOBIN 30.4 PG (27.0-31.0); MEAN CORPUSCULAR HGB CONC 32.7 g/dL (33.0-36.5); MEAN CORPUSCULAR VOLUME 93.1 FL (78-98); MEAN PLATELET VOLUME 9.3 FL (7.4-10.4); MONOCYTES # (AUTO) 0.7 X10'3 (0-0.9); MONOCYTES % (AUTO) 6.4 % (2-12); NEUTROPHILS # (AUTO) 7.8 X10'3 (1.8-7.7); NEUTROPHILS % (AUTO) 76.5 % (42-75); PLATELET COUNT 216 X10'3 (140-440); RED BLOOD COUNT 4.11 X10'6 (4.20-5.60); RED CELL DISTRIBUTION WIDTH 16.9 % (11.5-14.5); WHITE BLOOD COUNT 10.1 X10'3 (4.5-11.0)
[2020-04-05 07:51] LABS: ALANINE AMINOTRANSFERASE 70 U/L (12-78); ALBUMIN 3.5 G/DL (3.4-5.0); ALBUMIN/GLOBULIN RATIO 0.9 (1.1-1.5); ALKALINE PHOSPHATASE 93 IU/L (46-116); ANION GAP 7 (8-16); ASPARTATE AMINO TRANSFERASE 23 U/L (10-37); BILIRUBIN,TOTAL 0.4 MG/DL (0.1-1.0); BLOOD UREA NITROGEN 18 MG/DL (7-18); BUN/CREATININE RATIO 14.3 (6.6-38.0); CHLORIDE 104 MMOL/L (99-107); CREATININE 1.26 MG/DL (0.40-0.90); GLUCOSE 113 MG/DL (70-104); POTASSIUM 3.7 MMOL/L (3.5-5.1); SODIUM 138 MMOL/L (135-145); TOTAL CARBON DIOXIDE 27.1 MMOL/L (24-32); TOTAL PROTEIN 7.6 G/DL (6.4-8.2); eGFR 40 ML/MIN
--- NOTE | 2020-04-05 08:10 | NUR ---
Pt ambulated to the restroom without any assistance.
--- NOTE | 2020-04-05 09:51 | NUR ---
Patient resting comfortably in bed. She is updated on POC and denies any needs at this time.
[2020-04-05 11:19] VITALS: BP 188/66
== END 2020-04-05 11:58 | disposition home or self-care (01) ==
LOC: ER 07:07
DX: R07.89 Other chest pain (principal); R06.02 Shortness of breath; R05 Cough; I48.91 Unspecified atrial fibrillation; I25.10 Atherosclerotic heart disease of native coronary artery without angina pectoris; I50.9 Heart failure, unspecified; E78.00 Pure hypercholesterolemia, unspecified; I11.0 Hypertensive heart disease with heart failure; M19.90 Unspecified osteoarthritis, unspecified site; G89.29 Other chronic pain; Z98.61 Coronary angioplasty status; Z95.0 Presence of cardiac pacemaker; Z90.710 Acquired absence of both cervix and uterus; Z88.8 Allergy status to other drugs, medicaments and biological substances; Z79.01 Long term (current) use of anticoagulants; Z79.899 Other long term (current) drug therapy
CPT/HCPCS: 36415; 71045; 80053; 83880; 84484; 85025; 93005; 99285

== ENCOUNTER 2020-05-06 02:44 | Emergency (ER) | payer MEDICARE, BC ==
[~2020-05-06] VITALS: Ht 165.1 cm; Wt 52.3 kg
--- NOTE | 2020-05-06 02:49 | NUR ---
RR EVEN UN LABORED NO OBSERVABLE S/S OF AIRWAY ISSUE WILL CONTINUE TO MONITOR
[2020-05-06 03:27] LABS: BASOPHILS # (AUTO) 0.1 X10'3 (0-0.2); EOSINOPHILS # (AUTO) 0.1 X10'3 (0-0.9); EOSINOPHILS % (AUTO) 1.4 % (0-6); HEMATOCRIT 40.5 % (35.0-45.0); HEMOGLOBIN 13.3 g/dl (12.0-16.0); LYMPHOCYTES # (AUTO) 2.2 X10'3 (1.1-4.8); LYMPHOCYTES % (AUTO) 25.6 % (21-51); MEAN CORPUSCULAR HEMOGLOBIN 30.1 PG (27.0-31.0); MEAN CORPUSCULAR HGB CONC 32.9 g/dL (33.0-36.5); MEAN CORPUSCULAR VOLUME 91.6 FL (78-98); MEAN PLATELET VOLUME 9.2 FL (7.4-10.4); MONOCYTES # (AUTO) 0.8 X10'3 (0-0.9); MONOCYTES % (AUTO) 9.1 % (2-12); NEUTROPHILS # (AUTO) 5.3 X10'3 (1.8-7.7); NEUTROPHILS % (AUTO) 62.9 % (42-75); PLATELET COUNT 240 X10'3 (140-440); RED BLOOD COUNT 4.42 X10'6 (4.20-5.60); RED CELL DISTRIBUTION WIDTH 16.7 % (11.5-14.5); WHITE BLOOD COUNT 8.4 X10'3 (4.5-11.0)
[2020-05-06 03:28] LABS: CLARITY,URINE CLOUDY (Clear); COLOR,URINE RED (Yellow); GLUCOSE, URINE NEGATIVE (Neg); KETONES,URINE TRACE mg/dl (Neg); LEUKOCYTE ESTERASE ,URINE SMALL (Neg); OCCULT BLOOD,URINE LARGE (Neg); PH,URINE 6.5 (4.8-8.0); PROTEIN,URINE >=300 mg/dl (Neg)
[2020-05-06 03:38] LABS: UA COLLECTION TYPE CLN CATCH MIDSTREAM
[2020-05-06 03:39] LABS: BACTERIA,URINE NONE SEEN /HPF (Neg); MUCUS STRANDS NONE SEEN /LPF (Neg); NITRITES, URINE NEGATIVE (Neg); RBC,URINE TNTC /HPF (0-2); SQUAMOUS EPITHELIAL CELL,UR FEW /LPF (FEW); WBC,URINE NONE SEEN /HPF (0-4)
[2020-05-06 03:41] LABS: ALANINE AMINOTRANSFERASE 33 U/L (12-78); ALKALINE PHOSPHATASE 85 IU/L (46-116); ANION GAP 6 (8-16); ASPARTATE AMINO TRANSFERASE 18 U/L (10-37); BILIRUBIN,TOTAL 0.3 MG/DL (0.1-1.0); BLOOD UREA NITROGEN 25 MG/DL (7-18); BUN/CREATININE RATIO 18.4 (6.6-38.0); CALCIUM 8.8 MG/DL (8.5-10.1); CHLORIDE 102 MMOL/L (99-107); CREATININE 1.36 MG/DL (0.40-0.90); GLUCOSE 111 MG/DL (70-104); POTASSIUM 3.8 MMOL/L (3.5-5.1); SODIUM 137 MMOL/L (135-145); TOTAL CARBON DIOXIDE 29.5 MMOL/L (24-32); TOTAL PROTEIN 8.1 G/DL (6.4-8.2); eGFR 37 ML/MIN
[2020-05-06 05:28] VITALS: BP 177/72
== END 2020-05-06 05:30 | disposition home or self-care (01) ==
LOC: ER 02:44
DX: R31.9 Hematuria, unspecified (principal); I48.91 Unspecified atrial fibrillation; I25.10 Atherosclerotic heart disease of native coronary artery without angina pectoris; I50.9 Heart failure, unspecified; E78.00 Pure hypercholesterolemia, unspecified; I11.0 Hypertensive heart disease with heart failure; M19.90 Unspecified osteoarthritis, unspecified site; G89.29 Other chronic pain; Z98.61 Coronary angioplasty status; Z90.710 Acquired absence of both cervix and uterus; Z95.0 Presence of cardiac pacemaker; Z88.8 Allergy status to other drugs, medicaments and biological substances; Z79.01 Long term (current) use of anticoagulants; Z79.899 Other long term (current) drug therapy
CPT/HCPCS: 36415; 74176; 80053; 81001; 85025; 87088; 99284

== ENCOUNTER 2020-08-02 23:15 | Inpatient (IN) | payer MEDICARE, BC ==
[~2020-08-02] VITALS: Ht 165.1 cm; Wt 51.4 kg
[~2020-08-02 23:15] MED LIST changes: -CYAN500T63 PO; +CYAN500T64 PO
[2020-08-02 23:33] LABS: BASOPHILS # (AUTO) 0.1 X10'3 (0-0.2); BASOPHILS % (AUTO) 0.6 % (0-1); EOSINOPHILS % (AUTO) 0.6 % (0-6); HEMATOCRIT 32.9 % (35.0-45.0); HEMOGLOBIN 11.1 g/dl (12.0-16.0); LYMPHOCYTES # (AUTO) 1.8 X10'3 (1.1-4.8); LYMPHOCYTES % (AUTO) 21.5 % (21-51); MEAN CORPUSCULAR HEMOGLOBIN 33.1 PG (27.0-31.0); MEAN CORPUSCULAR HGB CONC 33.8 g/dL (33.0-36.5); MEAN CORPUSCULAR VOLUME 97.7 FL (78-98); MEAN PLATELET VOLUME 9.5 FL (7.4-10.4); MONOCYTES # (AUTO) 0.6 X10'3 (0-0.9); MONOCYTES % (AUTO) 7.2 % (2-12); NEUTROPHILS # (AUTO) 5.7 X10'3 (1.8-7.7); NEUTROPHILS % (AUTO) 70.1 % (42-75); PLATELET COUNT 199 X10'3 (140-440); RED BLOOD COUNT 3.37 X10'6 (4.20-5.60); RED CELL DISTRIBUTION WIDTH 16.3 % (11.5-14.5); WHITE BLOOD COUNT 8.1 X10'3 (4.5-11.0)
[2020-08-02 23:53] LABS: ALANINE AMINOTRANSFERASE 137 U/L (12-78); ALBUMIN 3.6 G/DL (3.4-5.0); ALBUMIN/GLOBULIN RATIO 0.9 (1.1-1.5); ALKALINE PHOSPHATASE 126 IU/L (46-116); ANION GAP 12 (8-16); ASPARTATE AMINO TRANSFERASE 137 U/L (10-37); BILIRUBIN,TOTAL 0.3 MG/DL (0.1-1.0); BLOOD UREA NITROGEN 32 MG/DL (7-18); BUN/CREATININE RATIO 24.4 (6.6-38.0); CALCIUM 8.7 MG/DL (8.5-10.1); CHLORIDE 103 MMOL/L (99-107); CREATININE 1.31 MG/DL (0.40-0.90); GLUCOSE 135 MG/DL (70-104); POTASSIUM 3.4 MMOL/L (3.5-5.1); SODIUM 138 MMOL/L (135-145); TOTAL CARBON DIOXIDE 23.4 MMOL/L (24-32); TOTAL PROTEIN 7.6 G/DL (6.4-8.2); eGFR 38 ML/MIN
--- NOTE | 2020-08-03 01:05 | NUR ---
PT AMBULATED 20 FEET TO BATHROOM TO OBTAIN URINE SAMPLE. PT HAD STEADY GAIT WITH MINIMAL ASSISTANCE. BACK IN BED AND PT REPORTS SLIGHT SOB. O2 SAT 95%. PT QUICKLY RECOVERED. PRIMARY RN AND MD AWARE
[2020-08-03 02:45] LABS: CLARITY,URINE CLEAR (Clear); COLOR,URINE YELLOW (Yellow); GLUCOSE, URINE NEGATIVE (Neg); KETONES,URINE NEGATIVE (Neg); LEUKOCYTE ESTERASE ,URINE NEGATIVE (Neg); NITRITES, URINE NEGATIVE (Neg); OCCULT BLOOD,URINE LARGE (Neg); PROTEIN,URINE NEGATIVE (Neg); UA COLLECTION TYPE CLN CATCH MIDSTREAM; UROBILINOGEN,URINE 0.2 E.U/dL (0.2-1.0)
[2020-08-03 02:48] LABS: BACTERIA,URINE NONE SEEN /HPF (Neg); SQUAMOUS EPITHELIAL CELL,UR FEW /LPF (FEW); WBC,URINE NONE SEEN /HPF (0-4)
[2020-08-03 03:03] LABS: LIPASE 134 U/L (73-393)
[2020-08-03] MEDS ORDERED: piperacillin/tazo 3.375gm/50ml 50 ML IV ONE (04:05)
[2020-08-03] MEDS ORDERED: normal saline 1000ML IV soln IV ONE (04:05)
[2020-08-03] MEDS ORDERED: AMIO200T61 PO (05:29)
[2020-08-03] MEDS ORDERED: METO50TA16 PO (05:29)
[2020-08-03] MEDS ORDERED: magnesium 4gm in 100ml NS 100 ML IV PRN (05:35)
[2020-08-03] MEDS ORDERED: potassium CL 10mEq/100ml bag 100 ML IV PRN ×2 (05:35)
[2020-08-03] MEDS ORDERED: mag hydrox/Alum hydrox/simeth 30ml oral suspension PO PRN (05:35)
[2020-08-03] MEDS ORDERED: acetaminophen 325mg tablet PO PRN (05:35)
[2020-08-03] MEDS ORDERED: potassium Cl 20 mEq SR tablet PO PRN (05:35)
[2020-08-03] MEDS ORDERED: magnesium Cl slow-release 64mg tablet PO PRN (05:35)
[2020-08-03] MEDS ORDERED: ondansetron/PF 4mg/2ml inj IV PRN (05:35)
[2020-08-03] MEDS ORDERED: magnesium hydroxide 30ml (MOM) UD suspension PO PRN (05:35)
[2020-08-03] MEDS ORDERED: magnesium 2GM in 50ml NS 50 ML IV PRN (05:35)
--- NOTE | 2020-08-03 05:38 | NUR ---
Ultrasound at bedside at this time.
--- NOTE | 2020-08-03 05:38 | NUR ---
Hospitalist Anoop at bedside consulting with pt. at this time.
[2020-08-03 05:39] LABS: PARTIAL THROMBOPLASTIN TIME 27 SECONDS (22-32)
--- NOTE | 2020-08-03 05:55 | NUR ---
Spoke with hospitalist via phone. ED trop series DCd at this time.
[2020-08-03] MEDS: normal saline 1000ml 1,000 ML IV SCH ×2 (05:59→20:35)
[2020-08-03] MEDS ORDERED: LEVO75TA7 PO (06:04)
[2020-08-03 07:20] VITALS: BP 159/52
[2020-08-03] MEDS ORDERED: amiodarone 200mg tablet PO SCH (08:00)
[2020-08-03] MEDS: K and/or MAG REPLACEMENT MC SCH ×2 (08:00→20:00)
[2020-08-03 10:00] VITALS: BP 162/62
[2020-08-03] MEDS: lactobacillus rhamnosus 10,000 MMU CELLS/CAPSULE PO SCH ×2 (12:12→20:36)
[2020-08-03] MEDS: aspirin 81mg tablet.DR PO SCH (12:13)
[2020-08-03] MEDS: metoprolol tartrate 50mg tablet PO SCH ×2 (12:13→20:35)
[2020-08-03] MEDS: levoTHYROXINE 75mcg tablet PO SCH (12:13)
[2020-08-03] MEDS: apixaban 2.5mg tablet PO SCH ×2 (12:13→20:36)
[2020-08-03] MEDS: piperacillin/tazo 3.375gm/50ml 50 ML IV SCH ×2 (12:23→17:59)
[2020-08-03] MEDS: lactose-reduced food (Ensure High Protein) 237ml bottle PO SCH ×2 (13:00→18:00)
[2020-08-03] MEDS: amiodarone 200mg tablet PO SCH (17:59)
[2020-08-03 18:00] VITALS: BP 167/53
--- NOTE | 2020-08-03 18:20 | NUR ---
Patient in room ORTHO 4014. I have received report from YSABEL Sanders and had the opportunity to ask questions and assume patient care.
[2020-08-03] MEDS: diltiazem CD 180mg cap (once-daily) PO SCH (20:35)
[2020-08-03 22:00] VITALS: BP 131/63
[2020-08-04] MEDS: piperacillin/tazo 3.375gm/50ml 50 ML IV SCH ×2 (01:11→08:00)
[2020-08-04] MEDS: normal saline 1000ml 1,000 ML IV SCH ×2 (01:35→11:35)
[2020-08-04 06:00] VITALS: BP 152/56
--- NOTE | 2020-08-04 06:00 | NUR ---
Patient in room ORTHO 4014. I have received report from Gisela GRADY and had the opportunity to ask questions and assume patient care.
--- NOTE | 2020-08-04 06:14 | NUR ---
Problems reprioritized. Patient report given, questions answered & plan of care reviewed with YSABEL Holly.
[2020-08-04 06:32] LABS: BASOPHILS % (AUTO) 0.4 % (0-1); EOSINOPHILS # (AUTO) 0.1 X10'3 (0-0.9); EOSINOPHILS % (AUTO) 1.7 % (0-6); HEMATOCRIT 33.2 % (35.0-45.0); HEMOGLOBIN 11.1 g/dl (12.0-16.0); LYMPHOCYTES # (AUTO) 1.3 X10'3 (1.1-4.8); LYMPHOCYTES % (AUTO) 20.5 % (21-51); MEAN CORPUSCULAR HEMOGLOBIN 32.1 PG (27.0-31.0); MEAN CORPUSCULAR HGB CONC 33.3 g/dL (33.0-36.5); MEAN CORPUSCULAR VOLUME 96.4 FL (78-98); MEAN PLATELET VOLUME 9.6 FL (7.4-10.4); MONOCYTES # (AUTO) 0.5 X10'3 (0-0.9); MONOCYTES % (AUTO) 8.2 % (2-12); NEUTROPHILS # (AUTO) 4.5 X10'3 (1.8-7.7); NEUTROPHILS % (AUTO) 69.2 % (42-75); PLATELET COUNT 208 X10'3 (140-440); RED BLOOD COUNT 3.44 X10'6 (4.20-5.60); RED CELL DISTRIBUTION WIDTH 16.5 % (11.5-14.5); WHITE BLOOD COUNT 6.5 X10'3 (4.5-11.0)
[2020-08-04 06:54] LABS: ALANINE AMINOTRANSFERASE 93 U/L (12-78); ALBUMIN 3.2 G/DL (3.4-5.0); ALBUMIN/GLOBULIN RATIO 0.8 (1.1-1.5); ALKALINE PHOSPHATASE 87 IU/L (46-116); ANION GAP 11 (8-16); ASPARTATE AMINO TRANSFERASE 46 U/L (10-37); BILIRUBIN,TOTAL 0.5 MG/DL (0.1-1.0); BLOOD UREA NITROGEN 14 MG/DL (7-18); BUN/CREATININE RATIO 13.3 (6.6-38.0); CALCIUM 8.4 MG/DL (8.5-10.1); CHLORIDE 103 MMOL/L (99-107); CREATININE 1.05 MG/DL (0.40-0.90); GLUCOSE 90 MG/DL (70-104); MAGNESIUM 1.7 MG/DL (1.5-2.4); SODIUM 141 MMOL/L (135-145); TOTAL CARBON DIOXIDE 26.6 MMOL/L (24-32); eGFR 49 ML/MIN
[2020-08-04 07:09] LABS: POTASSIUM 2.6 MMOL/L (3.5-5.1)
[2020-08-04] MEDS: levoTHYROXINE 75mcg tablet PO SCH (07:30)
[2020-08-04] MEDS: aspirin 81mg tablet.DR PO SCH (08:00)
[2020-08-04] MEDS: lactose-reduced food (Ensure High Protein) 237ml bottle PO SCH ×3 (08:00→18:00)
[2020-08-04] MEDS: potassium Cl 20 mEq SR tablet PO PRN ×3 (08:01→15:59)
[2020-08-04] MEDS: lactobacillus rhamnosus 10,000 MMU CELLS/CAPSULE PO SCH ×2 (08:04→20:01)
[2020-08-04] MEDS: metoprolol tartrate 50mg tablet PO SCH ×2 (08:05→20:02)
[2020-08-04] MEDS: apixaban 2.5mg tablet PO SCH ×2 (08:05→20:02)
[2020-08-04] MEDS: K and/or MAG REPLACEMENT MC SCH ×2 (08:09→20:00)
[2020-08-04 15:00] VITALS: BP_SYST 166; BP_SYST 176; BP_DIAS 59
[2020-08-04] MEDS: diltiazem CD 180mg cap (once-daily) PO SCH (17:47)
[2020-08-04] MEDS: amiodarone 200mg tablet PO SCH (17:47)
[2020-08-04 18:00] VITALS: BP 176/98
--- NOTE | 2020-08-04 18:15 | NUR ---
Patient in room [facility]014. I have received report from YSABEL Holly and had the opportunity to ask questions and assume patient care.
--- NOTE | 2020-08-04 18:18 | NUR ---
Problems reprioritized. Patient report given, questions answered & plan of care reviewed with Gisela GRADY.
[2020-08-04 20:00] VITALS: BP_SYST 158; BP_SYST 170; BP_SYST 176; BP_DIAS 58; BP_DIAS 64; BP_DIAS 67
[2020-08-04 22:00] VITALS: BP 158/67
[2020-08-05 06:00] VITALS: BP 136/73
--- NOTE | 2020-08-05 06:05 | NUR ---
received report from irma carter
--- NOTE | 2020-08-05 06:12 | NUR ---
Problems reprioritized. Patient report given, questions answered & plan of care reviewed with YSABEL Feng.
[2020-08-05 07:27] LABS: BASOPHILS % (AUTO) 0.5 % (0-1); EOSINOPHILS # (AUTO) 0.1 X10'3 (0-0.9); EOSINOPHILS % (AUTO) 1.8 % (0-6); HEMATOCRIT 33.6 % (35.0-45.0); HEMOGLOBIN 11.1 g/dl (12.0-16.0); LYMPHOCYTES # (AUTO) 1.3 X10'3 (1.1-4.8); LYMPHOCYTES % (AUTO) 18.6 % (21-51); MEAN CORPUSCULAR HEMOGLOBIN 32.2 PG (27.0-31.0); MEAN CORPUSCULAR HGB CONC 33.2 g/dL (33.0-36.5); MEAN CORPUSCULAR VOLUME 97.1 FL (78-98); MEAN PLATELET VOLUME 9.4 FL (7.4-10.4); MONOCYTES # (AUTO) 0.5 X10'3 (0-0.9); MONOCYTES % (AUTO) 7.5 % (2-12); NEUTROPHILS # (AUTO) 4.9 X10'3 (1.8-7.7); NEUTROPHILS % (AUTO) 71.6 % (42-75); PLATELET COUNT 224 X10'3 (140-440); RED BLOOD COUNT 3.46 X10'6 (4.20-5.60); RED CELL DISTRIBUTION WIDTH 16.5 % (11.5-14.5); WHITE BLOOD COUNT 6.8 X10'3 (4.5-11.0)
[2020-08-05] MEDS: K and/or MAG REPLACEMENT MC SCH (07:28)
[2020-08-05] MEDS: lactobacillus rhamnosus 10,000 MMU CELLS/CAPSULE PO SCH (07:33)
[2020-08-05] MEDS: aspirin 81mg tablet.DR PO SCH (07:33)
[2020-08-05] MEDS: levoTHYROXINE 75mcg tablet PO SCH (07:34)
[2020-08-05] MEDS: metoprolol tartrate 50mg tablet PO SCH (07:34)
[2020-08-05] MEDS: apixaban 2.5mg tablet PO SCH (07:34)
[2020-08-05 07:53] LABS: ALANINE AMINOTRANSFERASE 81 U/L (12-78); ALBUMIN 3.4 G/DL (3.4-5.0); ALBUMIN/GLOBULIN RATIO 0.9 (1.1-1.5); ALKALINE PHOSPHATASE 85 IU/L (46-116); ANION GAP 7 (8-16); ASPARTATE AMINO TRANSFERASE 33 U/L (10-37); BILIRUBIN,TOTAL 0.4 MG/DL (0.1-1.0); BLOOD UREA NITROGEN 16 MG/DL (7-18); BUN/CREATININE RATIO 15.4 (6.6-38.0); CALCIUM 8.5 MG/DL (8.5-10.1); CHLORIDE 104 MMOL/L (99-107); CREATININE 1.04 MG/DL (0.40-0.90); GLUCOSE 95 MG/DL (70-104); MAGNESIUM 1.7 MG/DL (1.5-2.4); POTASSIUM 3.4 MMOL/L (3.5-5.1); SODIUM 139 MMOL/L (135-145); TOTAL PROTEIN 7.4 G/DL (6.4-8.2); eGFR 50 ML/MIN
[2020-08-05] MEDS: lactose-reduced food (Ensure High Protein) 237ml bottle PO SCH (08:16)
[2020-08-05 10:00] VITALS: BP 173/47
--- NOTE | 2020-08-05 10:22 | NUR ---
pt d/c with instructions, understanding of instructions and w/all belongings in wheelchair to private vehicle to go home and f/u w/pcp
== END 2020-08-05 10:12 | disposition home health service (06) | DRG 683 ==
LOC: ER 23:16 → ED HOLD 08-03 05:34 → ORTHO 4S 08-03 07:05
PROVIDERS: ADMIT Family Medicine; ATTEND Internal Medicine
DX: N17.9 Acute kidney failure, unspecified (principal); J98.11 Atelectasis; E86.0 Dehydration; I48.91 Unspecified atrial fibrillation; E78.5 Hyperlipidemia, unspecified; Z88.8 Allergy status to other drugs, medicaments and biological substances; Z20.828 Contact with and (suspected) exposure to other viral communicable diseases; Z79.01 Long term (current) use of anticoagulants; Z90.710 Acquired absence of both cervix and uterus; I25.10 Atherosclerotic heart disease of native coronary artery without angina pectoris; E78.00 Pure hypercholesterolemia, unspecified; Z79.899 Other long term (current) drug therapy; Z80.3 Family history of malignant neoplasm of breast; I25.2 Old myocardial infarction; I50.9 Heart failure, unspecified; E87.6 Hypokalemia; I11.0 Hypertensive heart disease with heart failure; Z79.82 Long term (current) use of aspirin; G89.29 Other chronic pain; M19.90 Unspecified osteoarthritis, unspecified site; M54.9 Dorsalgia, unspecified; Z95.0 Presence of cardiac pacemaker
CPT/HCPCS: 36415; 70450; 71045; 71250; 74176; 76700; 80053; 81001; 83605; 83690; 83735; 83880; 84132; 84145; 84443; 84484; 85025; 85610; 85730; 87040; 87635; 93005; 96365; 97116; 97161; 97530; 99285; G0378; J2543; J7030